=== PATIENT | female | born 1935 | race Caucasian/White ===

== ENCOUNTER 2017-03-27 16:12 | Inpatient (IN) ==
[2017-03-27] MEDS ORDERED: ONDANSETRON 4 MG/2 ML VIAL IV STA (16:45)
[2017-03-27] MEDS ORDERED: methylPREDNISolone SOD SUC 125 MG/2 ML VIAL IV STA (16:45)
[2017-03-27] MEDS ORDERED: LEVOFLOXACIN INJ 750 MG in PREMIX 1 EACH IV STA (16:45)
[2017-03-27] MEDS ORDERED: ALBUTEROL/IPRATROPIUM 3 ML NEB RESP TX STA (16:45)
[2017-03-27] MEDS ORDERED: NITROGLYCERIN 2% OINT 1 INCH/GM PACK TOP STA (16:45)
[2017-03-27 16:58] LABS: Basophils # 0.1 10*3/uL (0.0-0.2); Basophils % 0.4 % (0.0-0.8); Hematocrit 38.9 VOL% (35.7-47.0); Hemoglobin 12.8 GM/DL (12.0-16.0); Immature Granulocytes % 1.5 %; Lymphocytes # 0.8 10*3/uL (1.4-4.0); Lymphocytes % 6.2 % (21.3-54.2); Mean Corpuscular HGB Conc 32.9 GM/DL (32-36); Mean Corpuscular Hemoglobin 28 PG (27-34); Mean Corpuscular Volume 83.8 FL (87-102); Mean Platelet Volume 9.6 FL (9.6-12.0); Monocytes # 0.6 10*3/uL (0.11-0.8); Monocytes % 4.4 % (1.7-12.7); Neutrophils # 11.8 10*3/uL (1.4-7.4); Neutrophils % 87.5 % (38.7-73.9); Platelet Count 384 T/CUMM (130-400); Red Blood Count 4.64 MC/CUMM (3.8-5.5); Red Cell Distribution Width 14.9 % (9.3-17.3); White Blood Count 13.5 T/CUMM (4-12)
--- NOTE | 2017-03-27 16:58 | Emergency Department Note ---
Arrival - Arrival Chief Complaint: Shortness of Breath Stated Complaint: SOB, chest pains ED Nursing Triage Note: Pt c/o SOB, cough, and chest heaviness x 1 wk. Mode of Arrival: Wheelchair Limitations: No Limitations Source: Patient Time Seen by Provider: 03/27/17 16:45 - History of Present Illness HPI Narrative: This 81-year-old white female with long-standing COPD presents on referral from Dr. Herrera's office with one-week of cough, dyspnea on exertion breath, chest tightness centrally, nausea, and discolored secretions. She likewise has associated complaints of sinus congestion and drainage. She denies any chills or fever. Currently she appears in no medical distress. Onset (ago): week(s) (Patient presents with one-week of progressive symptoms) Allergies/Adverse Reactions: Allergies Allergy/AdvReac Type Severity Reaction Status Date / Time Fish Allergy Severe ANAPHYLAXIS Verified 10/12/16 17:09 Penicillins Allergy Unknown Unknown/Unable Verified 10/12/16 17:09 to obtain adhesive tape Allergy Redness of Verified 03/27/17 16:22 Skin aspirin Allergy WHEEZING Verified 10/17/16 13:05 latex Allergy Redness of Verified 03/27/17 16:22 Skin meperidine [From Demerol] AdvReac Intermediate Anxiety Verified 10/12/16 17:09 Home Medications: Home Medications Medication Instructions Recorded Confirmed Type Alendronate Sodium 35 mg PO Q7DAY 07/01/16 03/27/17 History Levothyroxine Tab [Synthroid Tab] 75 mcg PO DAILY 07/01/16 03/27/17 History Albuterol/Ipratropium Neb [Duoneb] 3 ml RESP TX RT Q4H PRN #0 07/07/16 03/27/17 Rx nebulization solution Pantoprazole Tab [Protonix Tab] 40 mg PO DAILY #30 tablet 07/07/16 03/27/17 Rx Magnesium Chloride [Slow Mag] 64 mg PO TID 10/12/16 03/27/17 History Dicyclomine Cap/Tab [Bentyl 10 mg PO TID #90 capsule 10/19/16 03/27/17 Rx Cap/Tab] Montelukast Tab [Singulair Tab] 10 mg PO BID #60 tablet 10/19/16 03/27/17 Rx Potassium Chloride Cap/Tab [K Dur] 20 meq PO BID #60 tablet 10/19/16 03/27/17 Rx Sucralfate Tab [Carafate Tab] 1 gm PO ACHS #120 tablet 10/19/16 03/27/17 Rx Albuterol Sulfate [Proair HFA] 2 puff INH Q6H PRN 12/01/16 03/27/17 History Theophylline ER Cap (24 Hr) 300 mg PO BID 12/01/16 03/27/17 History [Jass-24] hydroCHLOROthiazide 25 mg PO BID 12/01/16 03/27/17 History [Hydrochlorothiazide] metOLazone [Metolazone] 2.5 mg PO DAILY 12/01/16 03/27/17 History Cetirizine Tab [ZyrTEC Tab] 10 mg PO BEDTIME tablet 12/11/16 03/27/17 Rx Fluticasone 50 Mcg Nasal [place] 2 spray BOTH NARES DAILY PRN #1 12/11/16 Rx [Flonase Nasal [place]] nasal spray Review of System - Review of System 12 point system: reviewed and no additional remarkable complaints except as stated - Review of System Constitutional: Present: as per HPI Head/Ears/Nose/Throat: Present: see HPI Respiratory: Present: as per HPI Cardiovascular: Present: as per HPI Gastrointestinal: Present: as per HPI Medical,Surgical,& Family Hx - Medical History Cardio: History of: Hypertension No history of: Aneurysm, Cardiac Dysrhythmia, Cerebrovascular Disease, Congenital Heart Disease, CHF, CAD, [place], Pacemaker, PVD, Valvular Heart Disease, Cardiovascular Problems HEENT: History of: Eye Problem, Dental Problems (dentures) Endocrine: No history of: Dyslipidemia Respiratory: History of: Asthma, COPD Gastrointestinal: History of: GI Problems (abdominal pain and diarrhea) Musculoskeletal: History of: Back/Neck Problems - Surgical History Cardiac Surgeries: Patient Denies: Femoral-Popliteal Bypass Graft, Cardiac Catheterization, Cardiac Surgery, Carotid Endarterectomy, Internal Defibrillator, Vascular Access Devices Thoracic Surgeries: Patient denies;: Organ Transplant, Lobectomy HEENT Surgeries: Surgical HX of: Eye Surgery (cataracts) Patient denies: Carotid Endarterectomy Abdominal Surgeries: Patient denies: Abdominal Surgery, Splenectomy Reproductive Surgeries: Surgical HX of;: Hysterectomy Patient denies;: Genitourinary Surgery Orthopedic Surgeries: Surgical HX of;: Spinal Surgery (tumor removed) - Family History Family History: Reports;: Family Cancer, Family Heart Disease, Family Hypertension - Social History Smoking Status: Never smoker Exam Physical Examination: GENERAL: Well developed, well nourished elderly white female in no acute distress. HEENT: Normocephalic. No trauma. Moist mucous membranes. EOMI. PERRLA. ENT ears clear, throat clear, nose reveals nasal mucosa erythema and edema NECK: Supple. Cervical adenopathy. CARDIAC: Regular. No murmurs. Heart rate 130 CHEST: Scattered expiratory wheeze and rhonchus. No respiratory distress. O2 sat 94% ABDOMEN: Soft. Nontender. Active bowel sounds. EXTREMITIES: No trauma. Normal ROM. No pedal edema. SKIN: No diaphoresis. No rash. NEURO: Alert. Neuro intact. No focal deficits. Vital Signs: Vital Signs Temperature 97.0 F L 03/27/17 16:32 Pulse Rate 130 H 03/27/17 17:30 Respiratory Rate 34 H 03/27/17 17:30 Blood Pressure 160/83 03/27/17 17:30 O2 Sat by Pulse Oximetry 96 03/27/17 17:30 Course - Reevaluation(s) Reevaluation #1: Patient continues with resting tachycardia, rapid respirations, and desaturation without oxygen. She was advised hospitalization with consultation with pulmonary. - Consultations Consultation #1: Discussed with hospitalist service who will admit for further evaluation and treatment as well as pulmonary consultation. Results - Labs CBC & BMP: 03/27/17 16:49 03/27/17 16:49 Labs: I reviewed the laboratory noted the bump in white blood cell count - Impressions EKG: Sinus tachycardia at 130. Normal AL interval and QRS duration. Diffuse nonspecific ST changes. No acute injury pattern noted. - Diagnostic Findings Procedure: Chest x-ray: image reviewed by me, report reviewed by me (No acute disease) Disposition Clinical Impression: Chronic COPD, Asthma Case discussed with: patient Disposition: Still a Patient Condition: Stable Time of Disposition: 18:18
[2017-03-27 17:09] LABS: PT Patient Result 10.2 SECS; Partial Thromboplastin Time 28.5 SECS (0-40)
[2017-03-27] MEDS ORDERED: NITROGLYCERIN 2% OINT 1 INCH/GM PACK TOP ONE (17:11)
[2017-03-27] MEDS ORDERED: LEVOFLOXACIN INJ 150 ML IV ONE (17:11)
[2017-03-27] MEDS ORDERED: methylPREDNISolone SOD SUC 125 MG/2 ML VIAL ONE (17:11)
[2017-03-27] MEDS ORDERED: ONDANSETRON 4 MG/2 ML VIAL ONE (17:11)
--- NOTE | 2017-03-27 17:11 | XRay Report ---
Exam: XR chest 1V portable Indication: Shortness of breath Comparison study: 12/11/2016 Findings: The heart, mediastinum and bony structures are stable from prior. Punctate subcentimeter calcific densities in the perihilar regions appear unchanged from prior and likely represent calcified granulomas. Linear opacity left lung base likely represents plate atelectasis or scarring. There is no focal consolidation, pneumothorax or pleural effusion identified. Impression: No acute cardiopulmonary process. No significant change from prior. PROCEDURE INTERPRETED AT [facility] DEPARTMENT OF RADIOLOGY Final Report Signed by: Mahin Valle
[2017-03-27 17:20] LABS: Alanine Aminotransferase 36 U/L (13-56); Albumin 3.7 G/DL (3.4-5.0); Alkaline Phosphatase 53 U/L (45-117); Aspartate Amino Transferase 28 U/L (0-37); Bilirubin,Total < 0.39 MG/DL (0.2-1.0); Blood Urea Nitrogen 14 MG/DL (7-18); Calcium 9.4 MG/DL (8.5-10.1); Glucose 126 MG/DL (74-106); Osmolality,Calculated 268.4 MOS/KG (273-304); Potassium 3.5 MMOL/L (3.5-5.1); Sodium 133 MMOL/L (136-145); Troponin I Only < 0.015 NG/ML (0.00-0.045)
--- NOTE | 2017-03-27 17:25 | EKG Report ---
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
[2017-03-27] MEDS ORDERED: hydrALAZINE 20 MG/1 ML VIAL IV STA (18:10)
--- NOTE | 2017-03-27 18:30 | Hospitalist History & Physical ---
Assessment and Plan (1) COPD (chronic obstructive pulmonary disease) Status: Acute Assessment and plan: We will admit. We will start empiric antibiotics, inhaled bronchodilators, and intravenous corticosteroids. We will recheck chest x-ray in a.m. Current Visit: No (2) HTN (hypertension) Status: Acute Assessment and plan: Blood pressures have been relatively stable in the ED. We will resume home medications as previously ordered. We will monitor.. Current Visit: No (3) Leukocytosis Status: Acute Assessment and plan: White blood cell count noted at 13.5, we will start empiric antibiotics and recheck CBC in a.m.. Current Visit: No History of Present Illness Chief complaint: cough and shortness of breath x1 week History of present illness: This is a chronically ill 81 year old female that presented to the ED at [facility] for evaluation of shortness of breath and cough x1 week. The patient has a rather impressive medical history significant for hypertension, hypothyroidism, asthma, chronic pulmonary obstructive disease , chronic neck and back pain, and GERD. 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 The patient reports the onset of cough and shortness of breath a week prior to presentation. In addition she reports chest tightness, nausea, and sputum green and yellow in color. The patient is generally followed by Dr. Herrera, however he is out of town this week. She contacted his office and was advised to present to the ED for further evaluation. Labs were obtained at the time of his ED presentation, which showed a white blood cell count at 13.5, MCV 83.8, neutrophils at 87.5, and neutrophils at 11.8. Chemistries were obtained; which reported a sodium at 133, potassium at 3.5, chloride 96, carbon dioxide 28, BUN of 14, creatinine at 1.20, glucose at 126, calculated osmolality at 268.4. Cardiac enzymes were obtained which revealed a troponin of less than 0.015, CK-MB of 2.9, and total CK at 137. BNP was noted at 14. Chest radiograph was obtained which revealed a linear opacity at the left lung base which likely represent plate atelectasis or scarring. There is no focal consolidation pneumothorax or pleural effusion noted. After brief discussion with both Dr. Connolly and Dr. Lawson, the patient will be admitted to the hospitalist service for continuation of care. Home Medications Medication Instructions Recorded Confirmed Type Alendronate Sodium 35 mg PO Q7DAY 07/01/16 03/27/17 History Levothyroxine Tab [Synthroid Tab] 75 mcg PO DAILY 07/01/16 03/27/17 History Albuterol/Ipratropium Neb [Duoneb] 3 ml RESP TX RT Q4H PRN #0 07/07/16 03/27/17 Rx nebulization solution Pantoprazole Tab [Protonix Tab] 40 mg PO DAILY #30 tablet 07/07/16 03/27/17 Rx Magnesium Chloride [Slow Mag] 64 mg PO TID 10/12/16 03/27/17 History Dicyclomine Cap/Tab [Bentyl 10 mg PO TID #90 capsule 10/19/16 03/27/17 Rx Cap/Tab] Montelukast Tab [Singulair Tab] 10 mg PO BID #60 tablet 10/19/16 03/27/17 Rx Potassium Chloride Cap/Tab [K Dur] 20 meq PO BID #60 tablet 10/19/16 03/27/17 Rx Sucralfate Tab [Carafate Tab] 1 gm PO ACHS #120 tablet 10/19/16 03/27/17 Rx Albuterol Sulfate [Proair HFA] 2 puff INH Q6H PRN 12/01/16 03/27/17 History Theophylline ER Cap (24 Hr) 300 mg PO BID 12/01/16 03/27/17 History [Jass-24] hydroCHLOROthiazide 25 mg PO BID 12/01/16 03/27/17 History [Hydrochlorothiazide] metOLazone [Metolazone] 2.5 mg PO DAILY 12/01/16 03/27/17 History Cetirizine Tab [ZyrTEC Tab] 10 mg PO BEDTIME tablet 12/11/16 03/27/17 Rx Fluticasone 50 Mcg Nasal [place] 2 spray BOTH NARES DAILY PRN #1 12/11/16 Rx [Flonase Nasal [place]] nasal spray Allergies Allergy/AdvReac Type Severity Reaction Status Date / Time Fish Allergy Severe ANAPHYLAXIS Verified 10/12/16 17:09 Penicillins Allergy Unknown Unknown/Unable Verified 10/12/16 17:09 to obtain adhesive tape Allergy Redness of Verified 03/27/17 16:22 Skin aspirin Allergy WHEEZING Verified 10/17/16 13:05 latex Allergy Redness of Verified 03/27/17 16:22 Skin meperidine [From Demerol] AdvReac Intermediate Anxiety Verified 10/12/16 17:09 Medical,Surgical,& Family Hx - Medical History Cardio: History of: Hypertension No history of: Aneurysm, Cardiac Dysrhythmia, Cerebrovascular Disease, Congenital Heart Disease, CHF, CAD, [place], Pacemaker, PVD, Valvular Heart Disease, Cardiovascular Problems HEENT: History of: Dental Problems (dentures) Endocrine: No history of: Dyslipidemia Respiratory: History of: Asthma, COPD Gastrointestinal: History of: GI Problems (abdominal pain and diarrhea) Musculoskeletal: History of: Back/Neck Problems - Surgical History Cardiac Surgeries: Patient Denies: Femoral-Popliteal Bypass Graft, Cardiac Catheterization, Cardiac Surgery, Carotid Endarterectomy, Internal Defibrillator, Vascular Access Devices Thoracic Surgeries: Patient denies;: Organ Transplant, Lobectomy HEENT Surgeries: Surgical HX of: Eye Surgery (cataracts) Patient denies: Carotid Endarterectomy Abdominal Surgeries: Patient denies: Abdominal Surgery, Splenectomy Reproductive Surgeries: Surgical HX of;: Hysterectomy Patient denies;: Genitourinary Surgery Orthopedic Surgeries: Surgical HX of;: Spinal Surgery (tumor removed) - Family History Family History: Reports;: Family Cancer, Family Heart Disease, Family Hypertension - Social History Smoking Status: Never smoker 12 point system: reviewed and no additional remarkable complaints except as stated Exam - Constitutional Vitals: Period Temp Pulse Resp BP Sys/Rahman Pulse Ox Last 24 Hr 97.0 F-97.0 F 116-134 17-34 107-160/59-99 94-99 General appearance: normal weight, mild distress - Head Head exam: Present: normal inspection, normocephalic, atraumatic - Eye Eye exam: Present: EOMI. Absent: conjunctival injection, nystagmus Pupils: Present: DEBORAH, normal accommodation - ENT ENT exam: Present: normal exam, normal external ear exam, normal oropharynx - Neck Neck exam: Present: normal inspection. Absent: lymphadenopathy, meningismus, tenderness, thyromegaly - Respiratory Respiratory exam: Present: rales, rhonchi, wheezes - Cardiovascular Cardiovascular exam: Present: tachycardia. Absent: carotid bruit, diastolic murmur, gallop, JVD, rubs - GI/Abdominal GI/Abdominal exam: Present: normal bowel sounds, soft - Extremities Exam Extremities exam: Present: normal inspection, normal capillary refill, full ROM. Absent: edema - Back Exam Back exam: Present: normal inspection - Neurological Exam Neurological exam: Present: alert, oriented X3 - Psychiatric Psychiatric exam: Present: anxious - Skin Skin exam: Present: normal color, warm, dry Results - Labs CBC & BMP: 03/27/17 16:49 03/27/17 16:49 Lab Results: I have reviewed the past 24 hour labs
[2017-03-27] MEDS ORDERED: FLUTICASONE 50 MCG NASAL SPRAY 16 GM BOTTLE BOTH NARES PRN (19:43)
[2017-03-27] MEDS ORDERED: LORazepam 1 MG TABLET PO PRN (19:46)
[2017-03-27] MEDS ORDERED: ONDANSETRON 4 MG/2 ML VIAL IV PRN (20:41)
[2017-03-27] MEDS ORDERED: GLUCAGON 1 MG VIAL IM PRN (20:41)
[2017-03-27] MEDS ORDERED: ACETAMINOPHEN 325 MG TABLET PO PRN (20:41)
[2017-03-27] MEDS ORDERED: ALBUTEROL 2.5 MG/3 ML NEB RESP TX PRN (20:41)
[2017-03-27] MEDS ORDERED: DEXTROSE 50% 25 GM/50 ML VIAL IV PRN (20:41)
[2017-03-27] MEDS ORDERED: ENOXAPARIN 30 MG/0.3 ML SYRINGE SUBCUT SCH (21:00)
[2017-03-27] MEDS ORDERED: CEFEPIME 1,000 MG in SODIUM CHLORIDE 0.9% 100 ML IV SCH (21:00)
[2017-03-27] MEDS: SODIUM CHLORIDE 0.9% 1,000 ML IV SCH (21:47)
[2017-03-27] MEDS: MAGNESIUM CHLORIDE 64 MG TABLET PO SCH (21:48)
[2017-03-27] MEDS: POTASSIUM CHLORIDE 10 MEQ TABLET PO SCH (21:48)
[2017-03-27] MEDS: DICYCLOMINE 10 MG CAPSULE PO SCH (21:48)
[2017-03-27] MEDS: THEOPHYLLINE ER (24 HR) 300 MG CAPSULE PO SCH (21:48)
[2017-03-27] MEDS: CETIRIZINE 10 MG TABLET PO SCH (21:49)
[2017-03-27] MEDS: SUCRALFATE 1 GM TABLET PO SCH (21:49)
[2017-03-27] MEDS: INSULIN LISPRO 100 UNIT/ML SUBCUT SCH (22:46)
[2017-03-27] MEDS: ALBUTEROL/IPRATROPIUM 3 ML NEB RESP TX SCH (22:52)
[2017-03-28] MEDS: methylPREDNISolone SOD SUC 40 MG/1 ML VIAL IV SCH ×3 (00:26→17:00)
[2017-03-28] MEDS: ALBUTEROL/IPRATROPIUM 3 ML NEB RESP TX SCH ×5 (02:41→20:11)
[2017-03-28 03:01] LABS: ABG Base Excess 3.4 MMOL/L (-2.5-2.5); ABG HCO3 27.6 MMOL/L (20-26); ABG Oxygen Saturation 96.6 % (95-100); ABG PCO2 40.6 MM HG (35-48); ABG PO2 85.5 MM HG (80-95); ABG TCO2 28.8 MMOL/L (23-27); Allen Test Positive
[2017-03-28 04:51] LABS: Basophils % 0.3 % (0.0-0.8); Hematocrit 35.6 VOL% (35.7-47.0); Hemoglobin 11.5 GM/DL (12.0-16.0); Immature Granulocytes % 1.9 %; Immature Granulocytes Absolute 0.19 #; Lymphocytes # 0.6 10*3/uL (1.4-4.0); Lymphocytes % 5.5 % (21.3-54.2); Mean Corpuscular HGB Conc 32.3 GM/DL (32-36); Mean Corpuscular Hemoglobin 27 PG (27-34); Mean Corpuscular Volume 83.8 FL (87-102); Mean Platelet Volume 9.6 FL (9.6-12.0); Monocytes # 0.1 10*3/uL (0.11-0.8); Monocytes % 0.7 % (1.7-12.7); Neutrophils # 9.2 10*3/uL (1.4-7.4); Neutrophils % 91.6 % (38.7-73.9); Platelet Count 355 T/CUMM (130-400); Red Blood Count 4.25 MC/CUMM (3.8-5.5); Red Cell Distribution Width 14.9 % (9.3-17.3); White Blood Count 10.1 T/CUMM (4-12)
[2017-03-28 05:30] LABS: Band Neutrophils 2 % (0-10); Lymphocytes 4 % (20-55); Segmented Neutrophils 92 % (50-85); Total Cells Counted 100
[2017-03-28 05:31] LABS: Hypochromasia 1+; Microcytosis 1+
[2017-03-28 05:32] LABS: Platelet Estimate Normal
[2017-03-28 05:37] LABS: Blood Urea Nitrogen 14 MG/DL (7-18); Calcium 8.9 MG/DL (8.5-10.1); Glucose 149 MG/DL (74-106); Magnesium 2.3 MG/DL (1.8-2.4); Potassium 3.5 MMOL/L (3.5-5.1); Sodium 136 MMOL/L (136-145); Troponin I Only < 0.015 NG/ML (0.00-0.045)
--- NOTE | 2017-03-28 07:26 | EKG Report ---
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
[2017-03-28] MEDS: LEVOTHYROXINE 75 MCG TABLET PO SCH (07:41)
[2017-03-28] MEDS: SUCRALFATE 1 GM TABLET PO SCH ×4 (07:42→20:52)
[2017-03-28] MEDS: INSULIN LISPRO 100 UNIT/ML SUBCUT SCH ×4 (09:08→21:08)
--- NOTE | 2017-03-28 09:12 | Physician Query Form ---
CLICK EDIT DOCUMENT TO SELECT QUERY ANSWER --> OK --> SIGN Rena Hermosillo RN, CCDS Certified Clinical Roofing Supervisor W) [phone] (f) [phone] [email or web address] PROVIDERS: Make your selection(s) from the choices in EACH section by typing an "x" and enter comments in the comment section. Please use your independent medical judgment in providing your response. This request does not imply that any particular answer is desired or expected. CLINICAL INDICATORS: (Providers should not edit this section) The medical record indicates that the patient was admitted with COPD (Acute), Pulse of 130#, Respirations of 34#, WBC of 13.5# and the patient was treated with antibiotics. Based on the above, could you clarify the appropriate diagnosis, if significant , that supports the above abnormalities and additional evaluation, monitoring, and/or treatment rendered: ( x) COPD without SIR's ( ) COPD with SIR's ( ) Other, please specify: ( ) Clinically unable to determine COMMENTS: PLEASE ALSO DOCUMENT RESPONSE IN PROGRESS NOTES AND/OR DISCHARGE SUMMARY Use of terms such as suspected, likely, or probable (associated with a specific diagnosis that is being evaluated, monitored, or treated as if it exists) are acceptable and can be restated in the discharge summary if not ruled out. MTDD
--- NOTE | 2017-03-28 09:17 | Hospitalist Progress Note ---
Assessment and Plan (1) COPD with acute exacerbation Status: Acute Assessment and plan: Impression: 1. COPD with acute exacerbation Plan: Continue current medical management. The patient is anxious to see Dr. Samaniego, so we will request evaluation if he is in town. This note was completed using [employer] voice recognition software. There may be electrophonic engineer errors as a result. Current Visit: No Hospitalist: Subjective Interval history: Follow-up COPD. The patient continues with dyspnea. She exhibits difficulty completing a sentence. She had an echocardiogram earlier this year that was fairly normal. She continues with a nonproductive cough. Exam - Constitutional Vitals: Period Temp Pulse Resp BP Sys/Rahman Pulse Ox Last 24 Hr 96.5 F-98.4 F 87-134 17-34 107-160/59-99 90-99 Vital signs are noted above. Heart is regular with distant tones and no murmur. Examination of the lungs reveals a prolonged expiratory phase. I do not hear any wheezing this morning. Abdomen is soft with positive bowel sounds. She is awake and alert Results - Labs CBC & BMP: 03/28/17 04:26 03/28/17 04:26 Lab Results: I have reviewed the past 24 hour labs - Diagnostic Findings Procedure: Chest x-ray: image reviewed by me
[2017-03-28] MEDS: DICYCLOMINE 10 MG CAPSULE PO SCH ×3 (10:12→20:52)
[2017-03-28] MEDS: THEOPHYLLINE ER (24 HR) 300 MG CAPSULE PO SCH ×2 (10:12→20:52)
[2017-03-28] MEDS: MAGNESIUM CHLORIDE 64 MG TABLET PO SCH ×3 (10:13→20:52)
[2017-03-28] MEDS: PANTOPRAZOLE 40 MG TABLET PO SCH (10:13)
[2017-03-28] MEDS: POTASSIUM CHLORIDE 10 MEQ TABLET PO SCH ×2 (10:14→20:52)
[2017-03-28] MEDS: SODIUM CHLORIDE 0.9% 1,000 ML IV SCH (10:15)
[2017-03-28] MEDS: CEFEPIME 1,000 MG in SODIUM CHLORIDE 0.9% 100 ML IV SCH ×2 (10:16→20:52)
--- NOTE | 2017-03-28 10:50 | Pulmonology Consult Note ---
History of Present Illness Chief complaint: Acute exacerbation of COPD. Bilateral basilar infiltrates. History of present illness: Benjamin Mauro, ANP-BC, GNP-BC, acting as scribe for Dr. Taqueria Samaniego Mrs. Gonzales is an 81 year old white female from [place], [place], presented to [facility] on 03/27/2017. She complained of increased shortness of breath , wheeze, chest tightness centrally, nausea and productive cough with discolored sputum. On evaluation, she is felt to be an acute exacerbation of COPD. Of note, approximately 1-2 weeks of note the patient called [facility] with complaints of a "sinus infection". She requests antibiotics, but had to wait come in for evaluation. She was started on Bactrim DS one half tablet p.o. twice daily for 2 weeks. Given her advanced age , acute illness, multiple co-morbidities, and the fact that she did not improve with outpatient treatment, it was felt in her best interest to hospitalize her for further evaluation and care. She reports increased shortness of breath, AGUSTIN and productive cough with discolored sputum for greater than 1 week. She denies any known fever, but states she has episodes of "hot and cold all the time". She confirms reflux, but denies dysphagia. There has been no cardiac angina or palpitations. Of note , I had a recent clinic visit the patient complained of "chest pain". She was given a prescription for Imdur 30 mg daily. EKG showed no acute changes. She was also referred to cardiology for evaluation. It is noted that her medication list this admission does not list Imdur. There has been no bleeding from any site. No change in bowel or bladder habits. No TIA symptoms or syncope. All other systems were reviewed and were negative. Allergies: PCN and Demerol Medications: See list Immunizations: Pneumovax was given in 2003. Tetanus shot was given in 2001. She gets yearly flu vaccinations. Past medical history: [place] hospitalization 12/01/2016 through 12/11/2016 under the care of the hospitalists and Dr. Samaniego. She was treated for an acute exacerbation of COPD secondary to gram-positive cocci and/or gram-negative rods as well as an acute exacerbation of asthma. [facility] hospitalization through 10/19/[address] Samaniego. During that admission she was treated for an acute abdominal pain with diarrhea refractory to outpatient treatment felt secondary to abdominal wall spasm, acute dehydration secondary to decreased oral intake, and associated generalized weakness. [facility] hospitalization 06/30/2016 through 07/10/[address] Samaniego. During that admission, she was treated for an acute exacerbation of her asthma which been refractory to outpatient treatment and also acute erosive left lower lung probable bronchitis which was seen on bronchoscopy 03/05/2016. [place] hospitalization September 2010-October 2010 with acute severe bronchitis and bronchospasm. At that time the patient went home on tapering dose of Prednisone , Singulair 10mg PO daily, and Theophylline 300mg PO BID. She was also on antibiotics. She was treated for a tick bite on her leg and her arm late January 2011. COPD with bronchospastic disease. Hypothyroidism. Diverticulosis. History of tobacco abuse. Distant past history of alcohol abuse. Pas history of episodes of symptomatic hypoglycemia occurring in the morning after excessive sugar intake. This resolved with revision of her diet. History of nonspecific colitis. Diverticular disease of the colon, redundant colon. Large lipoma over the left trapezius muscle. Degenerative joint disease with knee symptoms. Also pain in the interphalangeal joints of the hands. History of recurrent fever blisters in the mouth. Hypertension. Hyperlipidemia. Family history: Positive for heart disease, emphysema, bronchospastic disease, diabetes, and glaucotma. Social history: The patient says she stopped smoking. She has a history of alcoholism, but quit drinking more than 10-11 years ago. She occasionally has a glass of red wine. She is . Her , Kane Gonzales, was a patient of Dr. Samaniego and he 06/17/06. CXR. Done 03/27/17. My interpretation: Heart is normal sized. The pulmonary arteries are normal. The mediastinum is not enlarged. There is no hilar adenopathy. The lungs are hyperinflated. There are acute bibasilar infiltrates compatible with pneumonia. Laboratory: White count admission was 13,500 but is fallen to 10,100 with 91.6% segs, 5.5% lymphs, 0.7% monos; H&H 11.5/35.6 with low to low normal indices normal red blood cell distribution with; platelet count 355,000; INR 1.0; creatinine initially 1.20 but has improved to 0.9, BUN 14, sodium 136, potassium 3.5, magnesium 2.3; liver function tests within normal limits; cardiac isoenzymes are negative; BNP 14; calcium 8.9, albumin 3.7, total protein 7.0 ABGs. Done 03/28/2017 on an FiO2 of 28% showed pH of 7.450, PCO2 40.6, PO2 85.5 , bicarb 27.6, and oxygen saturation 96.6% Home Medications Medication Instructions Recorded Confirmed Type Alendronate Sodium 35 mg PO Q7DAY 07/01/16 03/27/17 History Levothyroxine Tab [Synthroid Tab] 75 mcg PO DAILY 07/01/16 03/27/17 History Albuterol/Ipratropium Neb [Duoneb] 3 ml RESP TX RT Q4H PRN #0 07/07/16 03/27/17 Rx nebulization solution Pantoprazole Tab [Protonix Tab] 40 mg PO DAILY #30 tablet 07/07/16 03/27/17 Rx Magnesium Chloride [Slow Mag] 64 mg PO TID 10/12/16 03/27/17 History Dicyclomine Cap/Tab [Bentyl 10 mg PO TID #90 capsule 10/19/16 03/27/17 Rx Cap/Tab] Montelukast Tab [Singulair Tab] 10 mg PO BID #60 tablet 10/19/16 03/27/17 Rx Potassium Chloride Cap/Tab [K Dur] 20 meq PO BID #60 tablet 10/19/16 03/27/17 Rx Sucralfate Tab [Carafate Tab] 1 gm PO ACHS #120 tablet 10/19/16 03/27/17 Rx Albuterol Sulfate [Proair HFA] 2 puff INH Q6H PRN 12/01/16 03/27/17 History Theophylline ER Cap (24 Hr) 300 mg PO BID 12/01/16 03/27/17 History [Jass-24] hydroCHLOROthiazide 25 mg PO BID 12/01/16 03/27/17 History [Hydrochlorothiazide] metOLazone [Metolazone] 2.5 mg PO DAILY 12/01/16 03/27/17 History Cetirizine Tab [ZyrTEC Tab] 10 mg PO BEDTIME tablet 12/11/16 03/27/17 Rx Fluticasone 50 Mcg Nasal [place] 2 spray BOTH NARES DAILY PRN #1 12/11/16 Rx [Flonase Nasal [place]] nasal spray Allergies Allergy/AdvReac Type Severity Reaction Status Date / Time Fish Allergy Severe ANAPHYLAXIS Verified 10/12/16 17:09 Penicillins Allergy Unknown Unknown/Unable Verified 10/12/16 17:09 to obtain adhesive tape Allergy Redness of Verified 03/27/17 16:22 Skin aspirin Allergy WHEEZING Verified 10/17/16 13:05 latex Allergy Redness of Verified 03/27/17 16:22 Skin meperidine [From Demerol] AdvReac Intermediate Anxiety Verified 10/12/16 17:09 Exam ([facility]) H&P - Constitutional Vitals: Period Temp Pulse Resp BP Sys/Rahman Pulse Ox Last 24 Hr 96.5 F-98.4 F 87-134 17-34 107-160/59-99 90-99 Exam: Psych: Oriented x 3; a pleasant and cooperative patient who is acutely and chronically ill-appearing; slightly anxious HEENT: Pupils, irises, sclera, conjunctiva, and eyelids are normal. The face is symmetrical and slightly cushingoid without rash or masses. Lips, tongue, buccal mucosa, soft and hard palates, and pharynx are WNL Neck: Symmetrical. Thyroid was not palpated. Lymphatics: No submandibular, cervical, or supraclavicular adenopathy Chest: Symmetrical and slightly kyphotic; no significant wheeze; large airway congestion Breasts: Deferred CV: Regular and tachycardic with a slightly lateral PMI. There is no appreciable murmur, rub, or gallop. Arterial: Carotids with a good upstroke. There is no bruit. Upper extremity pulses are palpable. Lower extremity pulses are non-palpable, but I see no evidence of ischemia Venous: Exam of the neck and upper extremities is normal Abd: No appreciable organomegaly, masses, tenderness, or bruit; Bowel sounds are positive x 4; The aorta was not palpated /Rectal: Deferred Extremities: No clubbing, cyanosis, or obvious DVT; there is mild pedal edema bilaterally Skin: No cancerous or infectious lesions of the exposed, examined skin; the perineal area was not examined. M/S: Mild loss of the normal curvature of the cervical, thoracic, and lumbar spine Neurological: Cranial nerves are intact, Long tract motor function is intact; Sensory exam was not done; gait was not tested. The remainder of the exam was noncontributory. Impression: #1: Acute exacerbation of COPD ---refractory to OP Tx #2: Asthma. COPD. #3: Acute bibasilar infiltrates compatible with bilateral lower lung pneumonia #4: Hypothyroidism #5: History of L1-L2 microdiscectomy done 08/11/[address] Chand #6: History of allergic sinusitis #7: Hypertension #8: Hyperlipidemia #9: Long history of tobacco abuse. Stopped smoking in early 2010. #10: Diverticular disease of the colon, redundant colon, and history of colitis #11: Lipoma over the left trapezius muscle #12: Postherpetic neuralgia #13: Past history of acute situational depression probably imposed on endogenous factors #14: DJD with prominent knee symptoms especially of the left knee #15: See past history Plan: #1: Agree with present antibiotics but will add Cleocin 300 mg IV every 6 hours #2: Repeat chest x-ray in the morning #3: Check cold agglutinins and Legionella #4: Sputum for gram stain, culture, and sensitivity #5: Check theophylline level #6: Check TSH and free T4 #7: See orders We appreciate this consult and will follow along with you. Medical,Surgical,& Family Hx - Medical History Cardio: History of: Cardiac Dysrhythmia (FAST HEART BEAT DIAGNOSED SEVERAL YEARS AGO ?), Hypertension No history of: Aneurysm, Cerebrovascular Disease, Congenital Heart Disease, CHF, CAD, MD, Pacemaker, PVD, Valvular Heart Disease, Cardiovascular Problems Psychological: History of: Depression HEENT: History of: Eye Problem (CATARACT), Dental Problems (dentures) Endocrine: History of: Thyroid Disorder No history of: Dyslipidemia Respiratory: History of: Asthma, Bronchitis, COPD, Respiratory Problems (USES 02 AT HOME) No history of: Intubation, Obstructive Sleep Apnea, Pulmonary Embolism, Pulmonary Hypertension, Pneumonia, Lung Cancer Genitourinary: History of: Recurring Urinary Tract Infections Gastrointestinal: History of: GERD, GI Problems (abdominal pain and diarrhea) Musculoskeletal: History of: Back/Neck Problems Hematology: History of: Bleeding Problems (ABNORMAL VAG BLEEDING (HYST), EASY BRUISING) Reproductive: History of: Reproductive Problems (ABNORMAL BLEEDING (HYST)) Other: History of: Skin Problems (SKIN TEARS EASILY(THIN SKIN), HX SHINGLES), Miscellaneous Medical Problems (BRUISES EASILY) - Surgical History Cardiac Surgeries: Patient Denies: Femoral-Popliteal Bypass Graft, Cardiac Catheterization, Cardiac Surgery, Carotid Endarterectomy, Internal Defibrillator, Vascular Access Devices Thoracic Surgeries: Patient denies;: Organ Transplant, Lobectomy Neurologic Surgeries: Patient denies: Neurologic Surgery HEENT Surgeries: Surgical HX of: Eye Surgery (cataracts), Tonsilectomy & Adenoidectomy Patient denies: Carotid Endarterectomy, Thyroid Surgery Abdominal Surgeries: Surgical HX of: Appendectomy, Colonoscopy (LAST DONE AT 74 Y/O), EGD Patient denies: Abdominal Surgery, Cholecystectomy, Gastric Bypass Surgery, Hernia Repair, Splenectomy Reproductive Surgeries: Surgical HX of;: Gynecologic Surgery, Hysterectomy Patient denies;: Genitourinary Surgery Orthopedic Surgeries: Surgical HX of;: Orthopedic Surgery (BACK SURG), Spinal Surgery (tumor removed) - Family History Family History: Reports;: Family Cancer (MOM(CERVIX),AUNT X2), Family Diabetes ( SON), Family Heart Disease (DAD(MD),SON), Family Hematology (SON(BLOOD CLOTS)), Family Hypertension (FATHER?), Family Psychiatric Problems (NEPHEW) Denies;: Family Anesthesia Reaction, Family Stroke, Additional Family History - Social History Smoking Status: Former smoker Frequency of Alcohol Use: None Type of Drug Use: None Results - Labs CBC & BMP: 03/28/17 04:26 03/28/17 04:26
[2017-03-28 12:25] LABS: Free T4 (Free Thyroxine) 1.27 NG/DL (0.76-1.46); Thyroid Stimulating Hormone 0.271 uIU/ml (0.358-3.74)
[2017-03-28] MEDS: CLINDAMYCIN INJ 300 MG in PREMIX 1 EACH IV SCH ×2 (13:19→17:30)
[2017-03-28] MEDS: LEVOFLOXACIN INJ 750 MG in PREMIX 1 EACH IV SCH (15:01)
[2017-03-28] MEDS: CETIRIZINE 10 MG TABLET PO SCH (20:52)
[2017-03-28] MEDS ORDERED: ENOXAPARIN 40 MG/0.4 ML SYRINGE SUBCUT SCH (21:00)
[2017-03-29] MEDS: ALBUTEROL/IPRATROPIUM 3 ML NEB RESP TX SCH ×7 (00:12→22:50)
[2017-03-29] MEDS: methylPREDNISolone SOD SUC 40 MG/1 ML VIAL IV SCH ×3 (02:11→17:53)
[2017-03-29] MEDS: CLINDAMYCIN INJ 300 MG in PREMIX 1 EACH IV SCH ×4 (02:11→18:00)
[2017-03-29] MEDS: SODIUM CHLORIDE 0.9% 1,000 ML IV SCH ×3 (04:41→17:59)
--- NOTE | 2017-03-29 08:26 | XRay Report ---
XR chest 2V Indication: Bibasilar infiltrates. Comparison: Chest x-ray 03/27/2017 Technique: PA and lateral chest x-ray was performed. Findings: The heart size appears within normal limits. Atherosclerotic calcification of the aortic knob is stable. Pulmonary vasculature demonstrates no specific abnormality. Hilar structures demonstrate fairly symmetric appearance. The lungs are now clear with exception of a focal nodular density right lung base that may be partially calcified. Minimal blunting the costophrenic angles is present. Hyperinflation is noted on the lateral image. Bones and soft tissues demonstrate no evidence of acute pathology. Impression: 1. Emphysematous changes are present. The lungs are clear on today's study with exception of a small nodular density in the lower right chest, density which suggests calcification. 03/29/2017 8:22 AM PROCEDURE INTERPRETED AT [facility] DEPARTMENT OF RADIOLOGY Final Report Signed by: Dr. Yony Hermosillo
--- NOTE | 2017-03-29 08:45 | Hospitalist Progress Note ---
Assessment and Plan (1) COPD with acute exacerbation Status: Acute Assessment and plan: Impression: 1. COPD with acute exacerbation Plan: Continue current medical management. Await pulmonary opinion. She may be about ready for discharge. This note was completed using [employer] voice recognition software. There may be track repairer helper errors as a result. Current Visit: No Hospitalist: Subjective Interval history: Follow-up COPD. The patient has just gone to have a chest x-ray. She says that she slept well last night. She is producing some sputum. She thinks her dyspnea may be at baseline. Exam - Constitutional Vitals: Period Temp Pulse Resp BP Sys/Ramhan Pulse Ox Last 24 Hr 96.6 F-98.1 F 87-130 15-22 124-139/55-77 95-99 Vital signs are noted above. Heart is regular with distant tones and no murmur. She is moving air fairly well. I do not hear any wheezes today. Abdomen is soft with no mass or tenderness. She is awake and alert. Results - Labs CBC & BMP: 03/28/17 04:26 03/28/17 04:26 Lab Results: I have reviewed the past 24 hour labs - Diagnostic Findings Procedure: Chest x-ray: image reviewed by me (Final report is pending. Film looks a little better to me.)
[2017-03-29] MEDS: CEFEPIME 1,000 MG in SODIUM CHLORIDE 0.9% 100 ML IV SCH ×2 (09:00→22:00)
[2017-03-29] MEDS: DICYCLOMINE 10 MG CAPSULE PO SCH ×3 (09:40→21:59)
[2017-03-29] MEDS: THEOPHYLLINE ER (24 HR) 300 MG CAPSULE PO SCH ×2 (09:40→21:59)
[2017-03-29] MEDS: MAGNESIUM CHLORIDE 64 MG TABLET PO SCH ×3 (09:40→21:59)
[2017-03-29] MEDS: SUCRALFATE 1 GM TABLET PO SCH ×5 (09:40→22:00)
[2017-03-29] MEDS: POTASSIUM CHLORIDE 10 MEQ TABLET PO SCH ×2 (09:41→21:59)
[2017-03-29] MEDS: PANTOPRAZOLE 40 MG TABLET PO SCH (09:41)
[2017-03-29] MEDS: LEVOTHYROXINE 75 MCG TABLET PO SCH (09:42)
[2017-03-29] MEDS: INSULIN LISPRO 100 UNIT/ML SUBCUT SCH ×4 (09:42→22:01)
--- NOTE | 2017-03-29 09:53 | Pulmonology Progress Note ---
Pulmonary - PN: Subj Interval history: This is an 81-year-old white female from [facility]. I saw in pulmonary consultation on 03/28/2017 My impressions were. #1: Acute exacerbation of COPD ---refractory to OP Tx #2: Asthma. COPD. #3: Acute bibasilar infiltrates compatible with bilateral lower lung pneumonia #4: Hypothyroidism #5: History of L1-L2 microdiscectomy done 08/11/[address] Chand #6: History of allergic sinusitis #7: Hypertension #8: Hyperlipidemia #9: Long history of tobacco abuse. Stopped smoking in early 2010. #10: Diverticular disease of the colon, redundant colon, and history of colitis #11: Lipoma over the left trapezius muscle #12: Postherpetic neuralgia #13: Past history of acute situational depression probably imposed on endogenous factors #14: DJD with prominent knee symptoms especially of the left knee #15: See past history 03/29/2017. Patient is a good bit better today she is beginning to mobilize a significant amount of discolored sputum. Her chest x-ray shows small residual of her resolving right lower lung pneumonia. She has been able to get up in the chair. I have asked her to walk a little bit make sure that she will be able to get up and move when she gets home. She is having trouble mobilizing her sputum and I have added SSKI and Mucinex to her regimen. On chest exam she still has tracheal wheeze with prolonged incomplete expiration. She still has a moderate cough. This patient could possibly be ready to go home tomorrow but on the other hand she may need to stay longer. Let us reevaluate Sunday morning. Physical exam. Vital signs. See below Psychiatric oriented 3. Neurologic. Cranial nerves are intact. Long track motor functions intact. Gait is a little unsteady. Face. Symmetrical. Lips and tongue are normal. Neck. Symmetrical. Slightly kyphotic. No meningismus. Lymphatics. No submandibular cervical supraclavicular or epitrochlear adenopathy Chest tracheal wheeze with prolonged incomplete expiration. I do not hear any peripheral wheezes but patient may not be moving enough air to produce these. Heart. No gallop Abdomen. Nontender. Positive bowel sounds Extremities. No evidence of deep venous thrombophlebitis. Skin. Patient has easy bruising and she is bleeding some from her IV site. I am going to discontinue her Lovenox. She is up and moving and deep venous thrombophlebitis is not a significant risk at this time. Plan: 03/28/2017 #1: Agree with present antibiotics but will add Cleocin 300 mg IV every 6 hours #2: Repeat chest x-ray in the morning #3: Check cold agglutinins and Legionella #4: Sputum for gram stain, culture, and sensitivity #5: Check theophylline level #6: Check TSH and free T4 #7: See orders 03/29/2017. 1. Add Mucinex 2. Add SSKI. 3. Could be close to discharge. Let us reevaluate Sunday morning Exam (Progress Note) - Constitutional Vitals: Period Temp Pulse Resp BP Sys/Rahman Pulse Ox Last 24 Hr 96.6 F-98.1 F 87-130 15-22 124-139/55-77 95-99 Results - Labs CBC & BMP: 03/28/17 04:26 03/28/17 04:26
[2017-03-29] MEDS: LEVOFLOXACIN INJ 750 MG in PREMIX 1 EACH IV SCH (15:26)
[2017-03-29] MEDS: POTASSIUM IODIDE ORAL SOLN 1,000 MG/ML BOTTLE PO SCH ×2 (15:30→22:00)
[2017-03-29] MEDS: CETIRIZINE 10 MG TABLET PO SCH (21:59)
[2017-03-30] MEDS: methylPREDNISolone SOD SUC 40 MG/1 ML VIAL IV SCH ×2 (01:21→09:26)
[2017-03-30] MEDS: CLINDAMYCIN INJ 300 MG in PREMIX 1 EACH IV SCH ×3 (01:21→12:32)
[2017-03-30] MEDS: ALBUTEROL/IPRATROPIUM 3 ML NEB RESP TX SCH ×4 (03:26→14:08)
[2017-03-30] MEDS: SODIUM CHLORIDE 0.9% 1,000 ML IV SCH (05:14)
[2017-03-30] MEDS: LEVOTHYROXINE 75 MCG TABLET PO SCH (06:20)
[2017-03-30] MEDS: SUCRALFATE 1 GM TABLET PO SCH ×3 (06:21→11:30)
[2017-03-30] MEDS: INSULIN LISPRO 100 UNIT/ML SUBCUT SCH ×2 (09:22→12:32)
[2017-03-30] MEDS: POTASSIUM CHLORIDE 10 MEQ TABLET PO SCH (09:23)
[2017-03-30] MEDS: DICYCLOMINE 10 MG CAPSULE PO SCH (09:23)
[2017-03-30] MEDS: CEFEPIME 1,000 MG in SODIUM CHLORIDE 0.9% 100 ML IV SCH (09:24)
[2017-03-30] MEDS: POTASSIUM IODIDE ORAL SOLN 1,000 MG/ML BOTTLE PO SCH (09:25)
[2017-03-30] MEDS: THEOPHYLLINE ER (24 HR) 300 MG CAPSULE PO SCH (09:25)
[2017-03-30] MEDS: MAGNESIUM CHLORIDE 64 MG TABLET PO SCH (09:25)
[2017-03-30] MEDS: PANTOPRAZOLE 40 MG TABLET PO SCH (09:25)
--- NOTE | 2017-03-30 09:45 | Pulmonology Progress Note ---
Pulmonary - PN: Subj Interval history: This is an 81-year-old white female from [facility]. I saw in pulmonary consultation on 03/28/2017 My impressions were. #1: Acute exacerbation of COPD ---refractory to OP Tx #2: Asthma. COPD. #3: Acute bibasilar infiltrates compatible with bilateral lower lung pneumonia #4: Hypothyroidism #5: History of L1-L2 microdiscectomy done 08/11/[address] Chand #6: History of allergic sinusitis #7: Hypertension #8: Hyperlipidemia #9: Long history of tobacco abuse. Stopped smoking in early 2010. #10: Diverticular disease of the colon, redundant colon, and history of colitis #11: Lipoma over the left trapezius muscle #12: Postherpetic neuralgia #13: Past history of acute situational depression probably imposed on endogenous factors #14: DJD with prominent knee symptoms especially of the left knee #15: See past history 03/29/2017. Patient is a good bit better today she is beginning to mobilize a significant amount of discolored sputum. Her chest x-ray shows small residual of her resolving right lower lung pneumonia. She has been able to get up in the chair. I have asked her to walk a little bit make sure that she will be able to get up and move when she gets home. She is having trouble mobilizing her sputum and I have added SSKI and Mucinex to her regimen. On chest exam she still has tracheal wheeze with prolonged incomplete expiration. She still has a moderate cough. This patient could possibly be ready to go home tomorrow but on the other hand she may need to stay longer. Let us reevaluate Sunday morning. 03/30/2017. SSKI was added to the patient's regimen yesterday. She was able to expectorate a great deal of sputum and she is markedly better. She feels like she is good enough to go home and I think she is correct on this. I have discussed this with Dr. Lakhani and he is agreeable. We have coordinated our care. I suggested she go home on her home medicines. We will continue prednisone 10 mg twice a day. First dose should be given in the morning and the second dose around noon time. I would give her 250 mg of Levaquin for another 7 days and Cleocin 300 mg p.o. 3 times a day for another 7 days. I suggest we add SSKI 0.9 mL 3 times a day to her regimen. I will make her a follow-up appointment to see DIEGO Priest pulmonary nurse practitioner in about 2 weeks. Physical exam. Vital signs. See below Psychiatric oriented 3. General. Markedly better. Respiratory distress seems to have resolved Neurologic. Cranial nerves are intact. Long track motor functions intact. Gait is a little unsteady. Face. Symmetrical. Lips and tongue are normal. Neck. Symmetrical. Slightly kyphotic. No meningismus. Lymphatics. No submandibular cervical supraclavicular or epitrochlear adenopathy Chest. Expiration is much better. Wheezes have resolved. There is no significant large airway congestion. There is no significant chest wall tenderness. This represents a significant improvement.. Heart. No gallop Abdomen. Nontender. Positive bowel sounds Extremities. No evidence of deep venous thrombophlebitis. Skin. 03/28/2017. Patient has easy bruising and she is bleeding some from her IV site. I am going to discontinue her Lovenox. She is up and moving and deep venous thrombophlebitis is not a significant risk at this time. Plan: 03/28/2017 #1: Agree with present antibiotics but will add Cleocin 300 mg IV every 6 hours #2: Repeat chest x-ray in the morning #3: Check cold agglutinins and Legionella #4: Sputum for gram stain, culture, and sensitivity #5: Check theophylline level #6: Check TSH and free T4 #7: See orders 03/29/2017. 1. Add Mucinex 2. Add SSKI. 3. Could be close to discharge. Let us reevaluate Sunday morning 03/30/2016. 1. Patient is ready for discharge. 2. See today's note above for suggestions on discharge medicines 3. Follow-up appointment has been made for the patient. Exam (Progress Note) - Constitutional Vitals: Period Temp Pulse Resp BP Sys/Rahman Pulse Ox Last 24 Hr 97.4 F-98.6 F 90-118 16-181 120-143/49-80 93-99 Results - Labs CBC & BMP: 03/28/17 04:26 03/28/17 04:26
--- NOTE | 2017-03-30 10:00 | Discharge Summary ---
Hospital Course - Hospital Course Hospital Course: 81-year-old lady who presented with one-week history of worsening cough shortness of breath. She has an extensive medical history which includes hypertension, hypothyroidism, asthma, COPD, GERD. Her shortness of breath with associated chest tightness but no pain. She also had sputum production which was green/yellow in color, no blood. She was admitted to the floor, treated with DuoNeb, steroids and antibiotics and high respiratory status did improve markedly. Pulmonology was consulted to help in management of respiratory illness COPD. On the day of discharge was my first encounter with patient. She was comfortably in her bed, in no obvious respiratory distress, vital signs stable. I discussed her discharge with pulmonology, cleared for discharge to outpatient follow-up pain clinic. Rest of hospital stay was uneventful and achieved maximum benefit of care. - Time spent with patient Time with patient DS: Greater than 30 minutes (Time taken in coordination of posthospital care and documentation) Specialty Discharge - Follow Up or Referrals Follow up with: Brenda Mauro CFNP [Advanced Practice Nurse] - 04/19/17 3:00 pm Discharge Plan - Discharge Data Disposition: Disch To Home/Self Care Condition at Discharge: Stable Discharge Diet: advance to your usual diet Activity: resume usual activities as tolerated - Discharge Medications New Levofloxacin Tab [Levaquin Tab] 250 mg PO DAILY #7 tablet Potassium Iodide Oral Soln [Sski] 300 mg PO TID #7 bottle predniSONE [Prednisone] 10 mg PO BIDAC #20 tab.ds.pk Continue Alendronate Sodium 35 mg PO Q7DAY Levothyroxine Tab [Synthroid Tab] 75 mcg PO DAILY Albuterol/Ipratropium Neb [Duoneb] 3 ml RESP TX RT Q4H PRN #0 nebulization solution PRN Reason: Shortness Of Breath/Wheezing Pantoprazole Tab [Protonix Tab] 40 mg PO DAILY #30 tablet Montelukast Tab [Singulair Tab] 10 mg PO BID #60 tablet hydroCHLOROthiazide [Hydrochlorothiazide] 25 mg PO BID Fluticasone 50 Mcg Nasal [place] [Flonase Nasal [place]] 2 spray BOTH NARES DAILY PRN #1 nasal spray PRN Reason: Allergy Symptoms Magnesium Chloride [Slow Mag] 64 mg PO TID Dicyclomine Cap/Tab [Bentyl Cap/Tab] 10 mg PO TID #90 capsule Potassium Chloride Cap/Tab [K Dur] 20 meq PO BID #60 tablet Sucralfate Tab [Carafate Tab] 1 gm PO ACHS #120 tablet Albuterol Sulfate [Proair HFA] 2 puff INH Q6H PRN PRN Reason: Shortness Of Breath/Wheezing Theophylline ER Cap (24 Hr) [Jass-24] 300 mg PO BID Cetirizine Tab [ZyrTEC Tab] 10 mg PO BEDTIME tablet Discontinued metOLazone [Metolazone] 2.5 mg PO DAILY - Follow Up or Referral Follow Up: Brenda Mauro CFNP [Advanced Practice Nurse] - 04/19/17 3:00 pm - Forms/Instructions Instructions: Chronic Obstructive Pulmonary Disease (DC) Additional Discharge Instructions: PCP in 1-2 weeks. Pulmonology as scheduled Exam - Constitutional Vitals: Period Temp Pulse Resp BP Sys/Rahman Pulse Ox Last 24 Hr 97.4 F-98.6 F 90-118 16-181 120-143/49-80 93-99 Discharge Results Procedures and tests throughout hospitalization: Pending Orders 03/27/17 17:18 Blood Culture Stat 03/28/17 11:33 Legionella Pneumophilia Ab Routine 03/30/17 08:15 Sputum Culture and Gram Stain Routine Labs on day of discharge: Labs from last 24 hours 03/30/17 03/29/17 03/29/17 08:32 20:49 16:22 POC Glucose 171 H 130 H 115 H 03/29/17 11:20 POC Glucose 87 Preliminary micro results at discharge 03/27/17 17:18 Blood Culture - Preliminary Blood No growth at 1 day 03/27/17 17:18 Blood Culture - Preliminary Blood No growth at 1 day DS: Provider Date of admission: 03/27/17 19:18 Primary care physician: Taqueria Samaniego MD Attending physician on admission: Socrates Titus MD Consults: 03/28/17 02:19 Consult to Pastoral Services [CONS] Routine Comment: Pastoral Screen: Declines Visit Pastoral Screen Source of Request: Patient 03/28/17 09:17 Consult to Physician [CONS] Routine Comment: patient of yours Consulting Provider: Taqueria Samaniego Consult Notification Comment: SPOKE TO BRENDA @ [id number] 03/30/17 09:20 Consult to Case Mgmt/Social Srvs [CONS] Routine Reason for Case Mgmt/Social Srvs: Home Health Discharging clinician: Derik Gutierrez MD
[2017-03-30 12:36] VITALS: BP 141/89
[2017-04-03] MEDS ORDERED: FOSAMAX PO SCH (09:00)
== END 2017-03-30 13:30 | disposition home health service (06) | DRG 190 ==
LOC: N.ED 16:12 → N.EDINP 19:18 → SUATTDRO 19:18 → N.2E 19:58
PROVIDERS: ADMIT Internal Medicine Infectious Disease; ATTEND Internal Medicine

== ENCOUNTER 2017-12-23 07:24 | Inpatient (IN) ==
[2017-12-23] MEDS ORDERED: ALBUTEROL/IPRATROPIUM 3 ML NEB RESP TX STA ×2 (08:24→13:05)
[2017-12-23] MEDS ORDERED: methylPREDNISolone SOD SUC 125 MG/2 ML VIAL IV STA (08:24)
[2017-12-23] MEDS ORDERED: methylPREDNISolone SOD SUC 125 MG/2 ML VIAL ONE (08:34)
[2017-12-23 08:56] LABS: Basophils # 0.1 10*3/uL (0.0-0.2); Basophils % 0.6 % (0.0-0.8); Eosinophils # 0.8 10*3/uL (0.0-0.87); Eosinophils % 9.5 % (0.00-10.9); Hematocrit 39.3 VOL% (35.7-47.0); Hemoglobin 12.8 GM/DL (12.0-16.0); Immature Granulocytes % 0.7 %; Immature Granulocytes Absolute 0.06 #; Lymphocytes % 11.9 % (21.3-54.2); Mean Corpuscular HGB Conc 32.6 GM/DL (32-36); Mean Corpuscular Hemoglobin 29 PG (27-34); Mean Corpuscular Volume 87.9 FL (87-102); Mean Platelet Volume 9.9 FL (9.6-12.0); Monocytes # 1.1 10*3/uL (0.11-0.8); Monocytes % 12.3 % (1.7-12.7); Neutrophils # 5.6 10*3/uL (1.4-7.4); Platelet Count 288 T/CUMM (130-400); Red Blood Count 4.47 MC/CUMM (3.8-5.5); Red Cell Distribution Width 14.5 % (9.3-17.3); White Blood Count 8.6 T/CUMM (4-12)
[2017-12-23 09:27] LABS: Albumin 3.8 G/DL (3.4-5.0); Bilirubin,Total 0.6 MG/DL (0.2-1.0); Calcium 9.4 MG/DL (8.5-10.1); Potassium 3.2 MMOL/L (3.5-5.1); Total Protein 6.6 G/DL (6.4-8.3)
[2017-12-23] MEDS ORDERED: LEVOFLOXACIN INJ 750 MG in PREMIX 1 EACH IV STA (09:55)
[2017-12-23] MEDS ORDERED: LEVOFLOXACIN INJ 150 ML IV ONE (10:09)
[2017-12-23] MEDS ORDERED: ONDANSETRON 4 MG/2 ML VIAL IV PRN (13:07)
[2017-12-23] MEDS ORDERED: diphenhydrAMINE CAP 25 MG CAPSULE PO PRN (13:07)
[2017-12-23] MEDS ORDERED: MORPHINE 2 MG/1 ML SYRINGE IV PRN (13:07)
[2017-12-23] MEDS ORDERED: ACETAMINOPHEN 325 MG TABLET PO PRN (13:07)
[2017-12-23] MEDS ORDERED: ALBUTEROL 2.5 MG/3 ML NEB RESP TX PRN (13:10)
[2017-12-23] MEDS ORDERED: MONTELUKAST 10 MG TABLET PO SCH (13:36)
[2017-12-23] MEDS: BUDESONIDE/FORMOTEROL 160-4.5 INHALER 6 GM INH SCH ×2 (13:54→21:53)
[2017-12-23] MEDS: LEVOTHYROXINE 75 MCG TABLET PO SCH (14:30)
[2017-12-23] MEDS: amLODIPine 5 MG TABLET PO SCH ×2 (14:32→21:53)
[2017-12-23] MEDS: POTASSIUM CHLORIDE 20 MEQ TABLET PO PRN (14:32)
[2017-12-23] MEDS: PANTOPRAZOLE 40 MG TABLET PO SCH (14:32)
[2017-12-23] MEDS: metOLazone 2.5 MG TABLET PO SCH (14:32)
[2017-12-23] MEDS: hydroCHLOROthiazide 25 MG TABLET PO SCH ×2 (14:32→21:54)
[2017-12-23] MEDS: DILTIAZEM CD 180 MG CAPSULE PO SCH (14:32)
[2017-12-23] MEDS: methylPREDNISolone SOD SUC 40 MG/1 ML VIAL IV SCH ×2 (14:33→21:52)
[2017-12-23] MEDS: POTASSIUM CHLORIDE 10 MEQ TABLET PO SCH ×2 (14:36→21:54)
[2017-12-23] MEDS ORDERED: ALBUTEROL/IPRATROPIUM 3 ML NEB RESP TX PRN (15:12)
[2017-12-23] MEDS ORDERED: AMINOPHYLLINE 250 MG in SODIUM CHLORIDE 0.9% 100 ML IV ONE (16:00)
[2017-12-23] MEDS: ALBUTEROL/IPRATROPIUM 3 ML NEB RESP TX SCH (17:51)
[2017-12-23] MEDS: cefTAZidime 1,000 MG in SYRINGE 1 EACH IV SCH (21:53)
[2017-12-23] MEDS: CETIRIZINE 10 MG TABLET PO SCH (21:54)
[2017-12-23] MEDS: ENOXAPARIN 40 MG/0.4 ML SYRINGE SUBCUT SCH (21:54)
[2017-12-23] MEDS: MONTELUKAST 10 MG TABLET PO SCH (21:54)
[2017-12-23] MEDS ORDERED: AMINOPHYLLINE 500 MG in SODIUM CHLORIDE 0.9% 480 ML IV SCH (22:00)
[2017-12-24] MEDS: ALBUTEROL/IPRATROPIUM 3 ML NEB RESP TX SCH ×4 (00:46→19:20)
[2017-12-24] MEDS: methylPREDNISolone SOD SUC 40 MG/1 ML VIAL IV SCH ×4 (02:45→21:33)
[2017-12-24] MEDS: cefTAZidime 1,000 MG in SYRINGE 1 EACH IV SCH ×3 (04:47→21:21)
[2017-12-24 05:15] LABS: Hematocrit 34.1 VOL% (35.7-47.0); Hemoglobin 11.7 GM/DL (12.0-16.0); Immature Granulocytes Absolute 0.05 #; Lymphocytes # 0.4 10*3/uL (1.4-4.0); Lymphocytes % 7.3 % (21.3-54.2); Mean Corpuscular HGB Conc 34.3 GM/DL (32-36); Mean Corpuscular Hemoglobin 29 PG (27-34); Mean Corpuscular Volume 84.4 FL (87-102); Mean Platelet Volume 10.5 FL (9.6-12.0); Monocytes # 0.1 10*3/uL (0.11-0.8); Monocytes % 1.6 % (1.7-12.7); Neutrophils # 4.5 10*3/uL (1.4-7.4); Neutrophils % 90.1 % (38.7-73.9); Platelet Count 277 T/CUMM (130-400); Red Blood Count 4.04 MC/CUMM (3.8-5.5); Red Cell Distribution Width 13.8 % (9.3-17.3)
[2017-12-24 05:46] LABS: Calcium 8.9 MG/DL (8.5-10.1); Osmolality,Calculated 275.1 MOS/KG (273-304); Potassium 3.4 MMOL/L (3.5-5.1)
[2017-12-24] MEDS: LEVOTHYROXINE 75 MCG TABLET PO SCH (05:57)
[2017-12-24] MEDS: DILTIAZEM CD 180 MG CAPSULE PO SCH (08:37)
[2017-12-24] MEDS: amLODIPine 5 MG TABLET PO SCH (08:37)
[2017-12-24] MEDS: metOLazone 2.5 MG TABLET PO SCH (08:37)
[2017-12-24] MEDS: PANTOPRAZOLE 40 MG TABLET PO SCH (08:37)
[2017-12-24] MEDS: POTASSIUM CHLORIDE 10 MEQ TABLET PO SCH ×2 (08:37→21:15)
[2017-12-24] MEDS: MONTELUKAST 10 MG TABLET PO SCH ×2 (08:37→21:14)
[2017-12-24] MEDS: hydroCHLOROthiazide 25 MG TABLET PO SCH ×2 (08:37→21:15)
[2017-12-24] MEDS: BUDESONIDE/FORMOTEROL 160-4.5 INHALER 6 GM INH SCH ×2 (08:38→21:15)
[2017-12-24] MEDS: LEVOFLOXACIN INJ 500 MG in PREMIX 1 EACH IV SCH (08:38)
[2017-12-24] MEDS ORDERED: LEVOFLOXACIN INJ 750 MG in PREMIX 1 EACH IV SCH (09:00)
[2017-12-24] MEDS ORDERED: DILTIAZEM CD 180 MG CAPSULE PO SCH (09:19)
[2017-12-24] MEDS ORDERED: DILTIAZEM CD 120 MG CAPSULE PO ONE (10:53)
[2017-12-24] MEDS ORDERED: DILTIAZEM 60 MG TABLET PO ONE (10:54)
[2017-12-24] MEDS: DICLOFENAC 1% GEL 100 GM TUBE TOP SCH ×3 (14:29→21:36)
[2017-12-24] MEDS: CETIRIZINE 10 MG TABLET PO SCH (21:14)
[2017-12-24] MEDS: ENOXAPARIN 40 MG/0.4 ML SYRINGE SUBCUT SCH (21:19)
[2017-12-24] MEDS: AMINOPHYLLINE IV SCH (23:12)
[2017-12-24] MEDS: SODIUM CHLORIDE 0.9% IV SCH (23:12)
[2017-12-25] MEDS: ALBUTEROL/IPRATROPIUM 3 ML NEB RESP TX SCH ×4 (00:35→19:34)
[2017-12-25] MEDS: methylPREDNISolone SOD SUC 40 MG/1 ML VIAL IV SCH ×4 (02:43→20:52)
[2017-12-25] MEDS: LEVOTHYROXINE 75 MCG TABLET PO SCH (05:30)
[2017-12-25] MEDS: cefTAZidime 1,000 MG in SYRINGE 1 EACH IV SCH (05:30)
[2017-12-25 05:42] LABS: Basophils % 0.1 % (0.0-0.8); Hematocrit 33.6 VOL% (35.7-47.0); Hemoglobin 11.6 GM/DL (12.0-16.0); Immature Granulocytes % 0.8 %; Immature Granulocytes Absolute 0.11 #; Lymphocytes # 0.3 10*3/uL (1.4-4.0); Lymphocytes % 2.3 % (21.3-54.2); Mean Corpuscular HGB Conc 34.5 GM/DL (32-36); Mean Corpuscular Hemoglobin 30 PG (27-34); Mean Corpuscular Volume 85.5 FL (87-102); Mean Platelet Volume 10.5 FL (9.6-12.0); Monocytes # 0.4 10*3/uL (0.11-0.8); Monocytes % 2.8 % (1.7-12.7); Neutrophils # 12.8 10*3/uL (1.4-7.4); Platelet Count 294 T/CUMM (130-400); Red Blood Count 3.93 MC/CUMM (3.8-5.5); Red Cell Distribution Width 14.2 % (9.3-17.3); White Blood Count 13.6 T/CUMM (4-12)
[2017-12-25 06:04] LABS: Giant Platelets Few; Hypochromasia 1+; Lymphocytes 3 % (20-55); Platelet Estimate Adequate; Segmented Neutrophils 92 % (50-85); Total Cells Counted 100
[2017-12-25 06:15] LABS: Calcium 9.5 MG/DL (8.5-10.1); Osmolality,Calculated 280.7 MOS/KG (273-304); Potassium 2.9 MMOL/L (3.5-5.1)
[2017-12-25 06:21] LABS: Risk Ratio 1.89; VLDL CHOLESTEROL 6.6 MG/DL
[2017-12-25] MEDS ORDERED: amLODIPine 5 MG TABLET PO SCH (09:00)
[2017-12-25] MEDS ORDERED: DILTIAZEM CD 240 MG CAPSULE PO SCH (09:00)
[2017-12-25] MEDS: LEVOFLOXACIN INJ 500 MG in PREMIX 1 EACH IV SCH (10:15)
[2017-12-25] MEDS: POTASSIUM CHLORIDE 10 MEQ TABLET PO SCH ×2 (10:17→20:43)
[2017-12-25] MEDS: POTASSIUM CHLORIDE 20 MEQ TABLET PO PRN ×3 (10:17→16:38)
[2017-12-25] MEDS: PANTOPRAZOLE 40 MG TABLET PO SCH (10:17)
[2017-12-25] MEDS: DICLOFENAC 1% GEL 100 GM TUBE TOP SCH ×4 (10:18→20:51)
[2017-12-25] MEDS: hydroCHLOROthiazide 25 MG TABLET PO SCH (10:18)
[2017-12-25] MEDS: MONTELUKAST 10 MG TABLET PO SCH ×2 (10:18→20:43)
[2017-12-25] MEDS: metOLazone 2.5 MG TABLET PO SCH (10:18)
[2017-12-25] MEDS: BUDESONIDE/FORMOTEROL 160-4.5 INHALER 6 GM INH SCH ×2 (10:18→21:48)
[2017-12-25] MEDS ORDERED: PHENOL 1.4% THROAT SPRAY 177 ML BOTTLE PO PRN (10:40)
[2017-12-25] MEDS: AMINOPHYLLINE IV SCH (12:00)
[2017-12-25] MEDS: SODIUM CHLORIDE 0.9% IV SCH (12:00)
[2017-12-25] MEDS: MYLANTA/LIDO VISC 2:1 300 ML BOTTLE SWISH/SWAL SCH ×3 (13:19→20:45)
[2017-12-25] MEDS ORDERED: SODIUM CHLORIDE 0.9% IV SCH (16:00)
[2017-12-25] MEDS ORDERED: AMINOPHYLLINE IV SCH (16:00)
[2017-12-25] MEDS ORDERED: DILTIAZEM CD 180 MG CAPSULE PO SCH (16:07)
[2017-12-25] MEDS: ATORVASTATIN 20 MG TABLET PO SCH (20:42)
[2017-12-25] MEDS: CETIRIZINE 10 MG TABLET PO SCH (20:44)
[2017-12-25] MEDS: ENOXAPARIN 40 MG/0.4 ML SYRINGE SUBCUT SCH (20:47)
[2017-12-26] MEDS: ALBUTEROL/IPRATROPIUM 3 ML NEB RESP TX SCH ×4 (00:33→20:46)
[2017-12-26] MEDS: methylPREDNISolone SOD SUC 40 MG/1 ML VIAL IV SCH ×3 (02:36→21:39)
[2017-12-26] MEDS: LEVOTHYROXINE 75 MCG TABLET PO SCH (06:12)
[2017-12-26 06:55] LABS: Basophils % 0.2 % (0.0-0.8); Hematocrit 38.3 VOL% (35.7-47.0); Hemoglobin 12.8 GM/DL (12.0-16.0); Immature Granulocytes % 1.7 %; Immature Granulocytes Absolute 0.23 #; Lymphocytes # 0.3 10*3/uL (1.4-4.0); Mean Corpuscular HGB Conc 33.4 GM/DL (32-36); Mean Corpuscular Hemoglobin 29 PG (27-34); Mean Corpuscular Volume 86.7 FL (87-102); Mean Platelet Volume 9.9 FL (9.6-12.0); Monocytes # 0.5 10*3/uL (0.11-0.8); Monocytes % 3.5 % (1.7-12.7); Neutrophils # 12.3 10*3/uL (1.4-7.4); Neutrophils % 92.6 % (38.7-73.9); Platelet Count 312 T/CUMM (130-400); Red Blood Count 4.42 MC/CUMM (3.8-5.5); Red Cell Distribution Width 14.4 % (9.3-17.3); White Blood Count 13.3 T/CUMM (4-12)
[2017-12-26] MEDS: MYLANTA/LIDO VISC 2:1 300 ML BOTTLE SWISH/SWAL SCH ×4 (07:30→21:44)
[2017-12-26 07:33] LABS: Band Neutrophils 2 % (0-10); Calcium 9.2 MG/DL (8.5-10.1); Hypochromasia 1+; Lymphocytes 4 % (20-55); Microcytosis 1+; Osmolality,Calculated 276.8 MOS/KG (273-304); Platelet Estimate Normal; Potassium 2.9 MMOL/L (3.5-5.1); Segmented Neutrophils 92 % (50-85); Total Cells Counted 100
[2017-12-26] MEDS: BUDESONIDE/FORMOTEROL 160-4.5 INHALER 6 GM INH SCH ×2 (09:00→21:43)
[2017-12-26] MEDS: DICLOFENAC 1% GEL 100 GM TUBE TOP SCH ×4 (09:00→21:43)
[2017-12-26] MEDS: metOLazone 2.5 MG TABLET PO SCH (09:00)
[2017-12-26] MEDS ORDERED: POTASSIUM CHLORIDE 20 MEQ TABLET PO ONE (10:05)
[2017-12-26] MEDS: POTASSIUM CHLORIDE 10 MEQ TABLET PO SCH ×2 (10:58→21:39)
[2017-12-26] MEDS: LEVOFLOXACIN INJ 500 MG in PREMIX 1 EACH IV SCH (10:58)
[2017-12-26] MEDS: hydroCHLOROthiazide 25 MG TABLET PO SCH (10:58)
[2017-12-26] MEDS: PANTOPRAZOLE 40 MG TABLET PO SCH (10:59)
[2017-12-26] MEDS: MONTELUKAST 10 MG TABLET PO SCH ×2 (10:59→21:38)
[2017-12-26] MEDS: AMINOPHYLLINE IV SCH (13:00)
[2017-12-26] MEDS: SODIUM CHLORIDE 0.9% IV SCH (13:00)
[2017-12-26] MEDS: ENOXAPARIN 40 MG/0.4 ML SYRINGE SUBCUT SCH (21:38)
[2017-12-26] MEDS: ATORVASTATIN 20 MG TABLET PO SCH (21:38)
[2017-12-26] MEDS: CETIRIZINE 10 MG TABLET PO SCH (21:39)
[2017-12-27] MEDS: ALBUTEROL/IPRATROPIUM 3 ML NEB RESP TX SCH ×4 (01:35→19:45)
[2017-12-27 05:36] LABS: Basophils % 0.2 % (0.0-0.8); Hematocrit 38.6 VOL% (35.7-47.0); Hemoglobin 13.4 GM/DL (12.0-16.0); Immature Granulocytes % 2.4 %; Immature Granulocytes Absolute 0.32 #; Lymphocytes # 0.5 10*3/uL (1.4-4.0); Lymphocytes % 3.4 % (21.3-54.2); Mean Corpuscular HGB Conc 34.7 GM/DL (32-36); Mean Corpuscular Hemoglobin 30 PG (27-34); Mean Corpuscular Volume 85.4 FL (87-102); Mean Platelet Volume 10.1 FL (9.6-12.0); Monocytes # 0.6 10*3/uL (0.11-0.8); Monocytes % 4.3 % (1.7-12.7); Neutrophils # 12.1 10*3/uL (1.4-7.4); Neutrophils % 89.7 % (38.7-73.9); Platelet Count 320 T/CUMM (130-400); Red Blood Count 4.52 MC/CUMM (3.8-5.5); Red Cell Distribution Width 14.4 % (9.3-17.3); White Blood Count 13.5 T/CUMM (4-12)
[2017-12-27] MEDS: LEVOTHYROXINE 75 MCG TABLET PO SCH (05:39)
[2017-12-27 05:40] LABS: INR 0.9; Partial Thromboplastin Time 25.8 SECS (0-40)
[2017-12-27 06:01] LABS: Hypochromasia 1+; Lymphocytes 2 % (20-55); Microcytosis Slight; Platelet Estimate Normal; Segmented Neutrophils 94 % (50-85); Total Cells Counted 100
[2017-12-27 06:09] LABS: Calcium 9.4 MG/DL (8.5-10.1); Osmolality,Calculated 276.8 MOS/KG (273-304)
[2017-12-27] MEDS: BUDESONIDE/FORMOTEROL 160-4.5 INHALER 6 GM INH SCH ×3 (06:12→22:56)
[2017-12-27] MEDS ORDERED: diphenhydrAMINE 50 MG/1 ML VIAL IM ONE (07:30)
[2017-12-27] MEDS ORDERED: LIDOCAINE 1% 20 ML VIAL MISC INJ ONE (08:00)
[2017-12-27] MEDS ORDERED: LIDOCAINE 2% VISCOUS 100 ML BOTTLE SWISH/SPIT ONE (08:00)
[2017-12-27] MEDS ORDERED: LIDOCAINE 2% 20 ML VIAL RESP TX ONE (08:00)
[2017-12-27] MEDS ORDERED: MIDAZOLAM 2 MG/2 ML VIAL IV ONE (08:00)
[2017-12-27] MEDS: MYLANTA/LIDO VISC 2:1 300 ML BOTTLE SWISH/SWAL SCH ×4 (08:20→22:55)
[2017-12-27] MEDS: MONTELUKAST 10 MG TABLET PO SCH ×3 (09:00→22:55)
[2017-12-27] MEDS: hydroCHLOROthiazide 25 MG TABLET PO SCH ×2 (09:00→12:50)
[2017-12-27] MEDS: DILTIAZEM CD 240 MG CAPSULE PO SCH ×3 (09:00→22:55)
[2017-12-27] MEDS: methylPREDNISolone SOD SUC 40 MG/1 ML VIAL IV SCH ×3 (09:00→22:56)
[2017-12-27] MEDS: DICLOFENAC 1% GEL 100 GM TUBE TOP SCH ×4 (09:00→22:56)
[2017-12-27] MEDS: PANTOPRAZOLE 40 MG TABLET PO SCH ×2 (09:00→12:50)
[2017-12-27] MEDS: DORNASE ALFA 2.5 MG/2.5 ML VIAL RESP TX SCH ×2 (11:05→19:45)
[2017-12-27] MEDS: POTASSIUM CHLORIDE 10 MEQ TABLET PO SCH ×3 (12:06→22:55)
[2017-12-27] MEDS: LEVOFLOXACIN INJ 500 MG in PREMIX 1 EACH IV SCH (12:40)
[2017-12-27] MEDS: METOPROLOL SUCCINATE XL 25 MG TABLET PO SCH (12:50)
[2017-12-27] MEDS: LISINOPRIL 10 MG TABLET PO SCH (12:50)
[2017-12-27] MEDS: SODIUM CHLORIDE 0.9% IV SCH (14:30)
[2017-12-27] MEDS: AMINOPHYLLINE IV SCH (14:30)
[2017-12-27] MEDS ORDERED: THEOPHYLLINE ER (24 HR) 200 MG CAPSULE PO SCH (17:00)
[2017-12-27] MEDS: ENOXAPARIN 40 MG/0.4 ML SYRINGE SUBCUT SCH (22:55)
[2017-12-27] MEDS: ATORVASTATIN 20 MG TABLET PO SCH (22:55)
[2017-12-27] MEDS: DOCUSATE SODIUM 100 MG CAPSULE PO PRN (22:56)
[2017-12-27] MEDS: CETIRIZINE 10 MG TABLET PO SCH (22:56)
[2017-12-28] MEDS: ALBUTEROL/IPRATROPIUM 3 ML NEB RESP TX SCH ×4 (00:25→19:35)
[2017-12-28 05:15] LABS: Basophils # 0.1 10*3/uL (0.0-0.2); Basophils % 0.6 % (0.0-0.8); Hematocrit 40.8 VOL% (35.7-47.0); Hemoglobin 13.4 GM/DL (12.0-16.0); Immature Granulocytes % 4.3 %; Immature Granulocytes Absolute 0.57 #; Lymphocytes # 0.6 10*3/uL (1.4-4.0); Lymphocytes % 4.4 % (21.3-54.2); Mean Corpuscular HGB Conc 32.8 GM/DL (32-36); Mean Corpuscular Hemoglobin 29 PG (27-34); Mean Corpuscular Volume 88.1 FL (87-102); Mean Platelet Volume 10.1 FL (9.6-12.0); Monocytes # 0.7 10*3/uL (0.11-0.8); Monocytes % 4.9 % (1.7-12.7); Neutrophils # 11.4 10*3/uL (1.4-7.4); Neutrophils % 85.8 % (38.7-73.9); Platelet Count 339 T/CUMM (130-400); Red Blood Count 4.63 MC/CUMM (3.8-5.5); Red Cell Distribution Width 14.2 % (9.3-17.3); White Blood Count 13.3 T/CUMM (4-12)
[2017-12-28 05:41] LABS: Calcium 9.2 MG/DL (8.5-10.1)
[2017-12-28 05:42] LABS: Band Neutrophils 1 % (0-10); Hypochromasia 1+; Lymphocytes 7 % (20-55); Microcytosis Slight; Platelet Estimate Adequate; Segmented Neutrophils 89 % (50-85); Total Cells Counted 100
[2017-12-28] MEDS: LEVOTHYROXINE 75 MCG TABLET PO SCH (06:20)
[2017-12-28] MEDS: DORNASE ALFA 2.5 MG/2.5 ML VIAL RESP TX SCH ×2 (07:48→19:35)
[2017-12-28] MEDS: MYLANTA/LIDO VISC 2:1 300 ML BOTTLE SWISH/SWAL SCH ×5 (10:44→21:06)
[2017-12-28] MEDS: METOPROLOL SUCCINATE XL 25 MG TABLET PO SCH (10:44)
[2017-12-28] MEDS: POTASSIUM CHLORIDE 10 MEQ TABLET PO SCH ×2 (10:44→21:07)
[2017-12-28] MEDS: DILTIAZEM CD 240 MG CAPSULE PO SCH ×2 (10:45→21:04)
[2017-12-28] MEDS: LEVOFLOXACIN INJ 500 MG in PREMIX 1 EACH IV SCH (10:46)
[2017-12-28] MEDS: PANTOPRAZOLE 40 MG TABLET PO SCH (10:46)
[2017-12-28] MEDS: MONTELUKAST 10 MG TABLET PO SCH ×2 (10:46→21:04)
[2017-12-28] MEDS: hydroCHLOROthiazide 25 MG TABLET PO SCH (10:46)
[2017-12-28] MEDS: LISINOPRIL 10 MG TABLET PO SCH (10:47)
[2017-12-28] MEDS: methylPREDNISolone SOD SUC 40 MG/1 ML VIAL IV SCH (10:47)
[2017-12-28] MEDS: BUDESONIDE/FORMOTEROL 160-4.5 INHALER 6 GM INH SCH ×2 (10:47→21:07)
[2017-12-28] MEDS: DICLOFENAC 1% GEL 100 GM TUBE TOP SCH ×4 (10:47→21:08)
[2017-12-28] MEDS: CLORAZEPATE 3.75 MG TABLET PO SCH ×3 (12:48→21:05)
[2017-12-28] MEDS: ENOXAPARIN 40 MG/0.4 ML SYRINGE SUBCUT SCH ×2 (21:00→21:04)
[2017-12-28] MEDS: ATORVASTATIN 20 MG TABLET PO SCH (21:04)
[2017-12-28] MEDS: CETIRIZINE 10 MG TABLET PO SCH (21:04)
[2017-12-28] MEDS: POTASSIUM CHLORIDE 20 MEQ TABLET PO PRN (21:06)
[2017-12-29] MEDS: ALBUTEROL/IPRATROPIUM 3 ML NEB RESP TX SCH ×4 (00:04→19:07)
[2017-12-29] MEDS: LEVOTHYROXINE 75 MCG TABLET PO SCH (05:56)
[2017-12-29 06:24] LABS: Basophils # 0.1 10*3/uL (0.0-0.2); Basophils % 0.6 % (0.0-0.8); Hematocrit 37.6 VOL% (35.7-47.0); Hemoglobin 12.7 GM/DL (12.0-16.0); Immature Granulocytes % 4.6 %; Immature Granulocytes Absolute 0.52 #; Lymphocytes # 0.8 10*3/uL (1.4-4.0); Lymphocytes % 7.4 % (21.3-54.2); Mean Corpuscular HGB Conc 33.8 GM/DL (32-36); Mean Corpuscular Hemoglobin 29 PG (27-34); Mean Corpuscular Volume 85.6 FL (87-102); Mean Platelet Volume 10.5 FL (9.6-12.0); Monocytes % 8.9 % (1.7-12.7); Neutrophils # 8.8 10*3/uL (1.4-7.4); Neutrophils % 78.5 % (38.7-73.9); Platelet Count 328 T/CUMM (130-400); Red Blood Count 4.39 MC/CUMM (3.8-5.5); White Blood Count 11.2 T/CUMM (4-12)
[2017-12-29 06:51] LABS: Calcium 8.6 MG/DL (8.5-10.1); Potassium 4.4 MMOL/L (3.5-5.1)
[2017-12-29 07:06] LABS: Lymphocytes 11 % (20-55); Segmented Neutrophils 81 % (50-85); Total Cells Counted 100
[2017-12-29 07:07] LABS: Hypochromasia 1+; Microcytosis 1+; Platelet Estimate Normal
[2017-12-29] MEDS: DORNASE ALFA 2.5 MG/2.5 ML VIAL RESP TX SCH ×2 (07:42→19:07)
[2017-12-29] MEDS: DICLOFENAC 1% GEL 100 GM TUBE TOP SCH ×4 (09:12→21:13)
[2017-12-29] MEDS: MYLANTA/LIDO VISC 2:1 300 ML BOTTLE SWISH/SWAL SCH ×5 (09:12→21:13)
[2017-12-29] MEDS: CLORAZEPATE 3.75 MG TABLET PO SCH ×3 (09:14→21:12)
[2017-12-29] MEDS: METOPROLOL SUCCINATE XL 25 MG TABLET PO SCH (09:14)
[2017-12-29] MEDS: LISINOPRIL 10 MG TABLET PO SCH (09:14)
[2017-12-29] MEDS: hydroCHLOROthiazide 25 MG TABLET PO SCH (09:14)
[2017-12-29] MEDS: DILTIAZEM CD 240 MG CAPSULE PO SCH ×2 (09:15→21:12)
[2017-12-29] MEDS: PANTOPRAZOLE 40 MG TABLET PO SCH (09:16)
[2017-12-29] MEDS: MONTELUKAST 10 MG TABLET PO SCH ×2 (09:16→21:12)
[2017-12-29] MEDS: LEVOFLOXACIN INJ 500 MG in PREMIX 1 EACH IV SCH (09:16)
[2017-12-29] MEDS: POTASSIUM CHLORIDE 10 MEQ TABLET PO SCH (09:16)
[2017-12-29] MEDS: methylPREDNISolone SOD SUC 40 MG/1 ML VIAL IV SCH (09:20)
[2017-12-29] MEDS: BUDESONIDE/FORMOTEROL 160-4.5 INHALER 6 GM INH SCH ×2 (09:24→21:13)
[2017-12-29] MEDS: DOCUSATE SODIUM 100 MG CAPSULE PO PRN (09:24)
[2017-12-29] MEDS: ATORVASTATIN 20 MG TABLET PO SCH (21:12)
[2017-12-29] MEDS: CETIRIZINE 10 MG TABLET PO SCH (21:12)
[2017-12-29] MEDS: ENOXAPARIN 40 MG/0.4 ML SYRINGE SUBCUT SCH (21:13)
[2017-12-30] MEDS: ALBUTEROL/IPRATROPIUM 3 ML NEB RESP TX SCH ×4 (01:13→21:11)
[2017-12-30 05:02] LABS: Basophils # 0.1 10*3/uL (0.0-0.2); Basophils % 0.8 % (0.0-0.8); Hematocrit 41.2 VOL% (35.7-47.0); Hemoglobin 13.9 GM/DL (12.0-16.0); Immature Granulocytes % 4.6 %; Immature Granulocytes Absolute 0.73 #; Lymphocytes # 1.5 10*3/uL (1.4-4.0); Lymphocytes % 9.4 % (21.3-54.2); Mean Corpuscular HGB Conc 33.7 GM/DL (32-36); Mean Corpuscular Hemoglobin 29 PG (27-34); Mean Corpuscular Volume 86.9 FL (87-102); Monocytes # 1.4 10*3/uL (0.11-0.8); Monocytes % 9.1 % (1.7-12.7); Neutrophils % 76.1 % (38.7-73.9); Platelet Count 384 T/CUMM (130-400); Red Blood Count 4.74 MC/CUMM (3.8-5.5); Red Cell Distribution Width 14.3 % (9.3-17.3); White Blood Count 15.8 T/CUMM (4-12)
[2017-12-30 05:23] LABS: Band Neutrophils 2 % (0-10); Lymphocytes 12 % (20-55); Platelet Estimate Normal; Segmented Neutrophils 84 % (50-85); Total Cells Counted 100
[2017-12-30 05:25] LABS: Potassium 4.6 MMOL/L (3.5-5.1)
[2017-12-30] MEDS: LEVOTHYROXINE 75 MCG TABLET PO SCH (05:58)
[2017-12-30] MEDS: DICLOFENAC 1% GEL 100 GM TUBE TOP SCH ×5 (06:02→21:14)
[2017-12-30] MEDS: DORNASE ALFA 2.5 MG/2.5 ML VIAL RESP TX SCH ×2 (06:57→21:11)
[2017-12-30] MEDS: MYLANTA/LIDO VISC 2:1 300 ML BOTTLE SWISH/SWAL SCH ×4 (07:48→21:15)
[2017-12-30] MEDS: PANTOPRAZOLE 40 MG TABLET PO SCH (09:45)
[2017-12-30] MEDS: DILTIAZEM CD 240 MG CAPSULE PO SCH ×2 (09:46→21:14)
[2017-12-30] MEDS: METOPROLOL SUCCINATE XL 25 MG TABLET PO SCH (09:46)
[2017-12-30] MEDS: CLORAZEPATE 3.75 MG TABLET PO SCH ×3 (09:46→21:14)
[2017-12-30] MEDS: POTASSIUM CHLORIDE 10 MEQ TABLET PO SCH (09:46)
[2017-12-30] MEDS: LISINOPRIL 10 MG TABLET PO SCH (09:46)
[2017-12-30] MEDS: hydroCHLOROthiazide 25 MG TABLET PO SCH (09:46)
[2017-12-30] MEDS: MONTELUKAST 10 MG TABLET PO SCH ×2 (09:46→21:14)
[2017-12-30] MEDS: BUDESONIDE/FORMOTEROL 160-4.5 INHALER 6 GM INH SCH ×2 (09:48→21:14)
[2017-12-30] MEDS: LEVOFLOXACIN INJ 500 MG in PREMIX 1 EACH IV SCH (10:41)
[2017-12-30] MEDS: methylPREDNISolone SOD SUC 40 MG/1 ML VIAL IV SCH (10:41)
[2017-12-30] MEDS: predniSONE 20 MG TABLET PO SCH (10:41)
[2017-12-30] MEDS: CETIRIZINE 10 MG TABLET PO SCH (21:14)
[2017-12-30] MEDS: ATORVASTATIN 20 MG TABLET PO SCH (21:14)
[2017-12-30] MEDS: ENOXAPARIN 40 MG/0.4 ML SYRINGE SUBCUT SCH (21:14)
[2017-12-31] MEDS: ALBUTEROL/IPRATROPIUM 3 ML NEB RESP TX SCH ×3 (01:21→13:30)
[2017-12-31 05:27] LABS: Basophils # 0.1 10*3/uL (0.0-0.2); Basophils % 0.8 % (0.0-0.8); Eosinophils % 0.1 % (0.00-10.9); Hematocrit 39.9 VOL% (35.7-47.0); Hemoglobin 13.4 GM/DL (12.0-16.0); Immature Granulocytes % 5.5 %; Immature Granulocytes Absolute 0.82 #; Lymphocytes # 1.6 10*3/uL (1.4-4.0); Lymphocytes % 10.5 % (21.3-54.2); Mean Corpuscular HGB Conc 33.6 GM/DL (32-36); Mean Corpuscular Hemoglobin 29 PG (27-34); Mean Corpuscular Volume 86.2 FL (87-102); Mean Platelet Volume 10.1 FL (9.6-12.0); Monocytes # 1.4 10*3/uL (0.11-0.8); Monocytes % 9.2 % (1.7-12.7); Neutrophils # 11.1 10*3/uL (1.4-7.4); Neutrophils % 73.9 % (38.7-73.9); Platelet Count 351 T/CUMM (130-400); Red Blood Count 4.63 MC/CUMM (3.8-5.5); Red Cell Distribution Width 14.2 % (9.3-17.3)
[2017-12-31 05:37] LABS: Calcium 8.9 MG/DL (8.5-10.1); Potassium 4.5 MMOL/L (3.5-5.1)
[2017-12-31 06:04] LABS: Hypochromasia 1+; Lymphocytes 7 % (20-55); Microcytosis Slight; Myelocytes 1 %; Platelet Estimate Normal; Segmented Neutrophils 81 % (50-85); Total Cells Counted 100
[2017-12-31] MEDS: LEVOTHYROXINE 75 MCG TABLET PO SCH (06:06)
[2017-12-31] MEDS: DORNASE ALFA 2.5 MG/2.5 ML VIAL RESP TX SCH (07:45)
[2017-12-31] MEDS: MYLANTA/LIDO VISC 2:1 300 ML BOTTLE SWISH/SWAL SCH ×2 (09:00→10:57)
[2017-12-31] MEDS ORDERED: LEVOFLOXACIN 500 MG TABLET PO SCH (09:00)
[2017-12-31] MEDS: MONTELUKAST 10 MG TABLET PO SCH (09:05)
[2017-12-31] MEDS: PANTOPRAZOLE 40 MG TABLET PO SCH (09:05)
[2017-12-31] MEDS: CLORAZEPATE 3.75 MG TABLET PO SCH (09:05)
[2017-12-31] MEDS: METOPROLOL SUCCINATE XL 25 MG TABLET PO SCH (09:06)
[2017-12-31] MEDS: BUDESONIDE/FORMOTEROL 160-4.5 INHALER 6 GM INH SCH (09:06)
[2017-12-31] MEDS: predniSONE 20 MG TABLET PO SCH (09:06)
[2017-12-31] MEDS: POTASSIUM CHLORIDE 10 MEQ TABLET PO SCH (09:06)
[2017-12-31] MEDS: DICLOFENAC 1% GEL 100 GM TUBE TOP SCH ×2 (09:07→14:01)
[2017-12-31] MEDS: LISINOPRIL 10 MG TABLET PO SCH (09:53)
[2017-12-31] MEDS: DILTIAZEM CD 240 MG CAPSULE PO SCH (09:53)
[2017-12-31] MEDS: hydroCHLOROthiazide 25 MG TABLET PO SCH (09:53)
[2017-12-31] MEDS ORDERED: AZELASTINE NASAL 137 MCG/SPRAY 30 ML BOTTLE BOTH NARES SCH (11:00)
[2017-12-31 12:18] VITALS: BP 97/58
[2017-12-31] MEDS ORDERED: predniSONE 10 MG TABLET PO SCH (14:00)
[2018-01-01] MEDS ORDERED: miSOPROStol 100 MCG TABLET PO SCH (09:00)
== END 2017-12-31 14:15 | disposition home or self-care (01) | DRG 190 ==
LOC: EDUNIT# → EDBD → N.ED 07:24 → N.EDINP 12:35 → SUATTDRO 12:35 → N.2E 13:35
PROVIDERS: ADMIT Hospitalist

== ENCOUNTER 2020-11-08 12:58 | Observation (INO) ==
[2020-11-08] MEDS ORDERED: SODIUM CHLORIDE 0.9% 500 ML IV STA (13:38)
[2020-11-08 13:58] LABS: Albumin 3.8 G/DL (3.4-5.0); Bilirubin,Total 0.4 MG/DL (0.2-1.0); Calcium 9.2 MG/DL (8.5-10.1); Osmolality,Calculated 257.9 MOS/KG (273-304); Potassium 3.6 MMOL/L (3.5-5.1); Total Protein 6.9 G/DL (6.4-8.3)
[2020-11-08 14:01] LABS: Basophils % 0.4 % (0.0-0.8); Eosinophils % 0.1 % (0.00-10.9); Hematocrit 39.7 VOL% (35.7-47.0); Hemoglobin 13.6 GM/DL (12.0-16.0); Immature Granulocytes % 2.1 %; Immature Granulocytes Absolute 0.17 #; Lymphocytes # 0.5 10*3/uL (1.4-4.0); Lymphocytes % 6.4 % (21.3-54.2); Mean Corpuscular HGB Conc 34.3 GM/DL (32-36); Mean Corpuscular Volume 87.8 FL (87-102); Mean Platelet Volume 9.4 FL (9.6-12.0); Monocytes % 5.6 % (1.7-12.7); Neutrophils % 85.4 % (38.7-73.9); Platelet Count 359 T/CUMM (130-400); Red Blood Count 4.52 MC/CUMM (3.8-5.5); Red Cell Distribution Width 13.2 % (9.3-17.3)
[2020-11-08] MEDS ORDERED: GLUCAGON 1 MG VIAL IM PRN (16:30)
[2020-11-08] MEDS ORDERED: ACETAMINOPHEN 325 MG TABLET PO PRN (16:30)
[2020-11-08] MEDS ORDERED: ONDANSETRON 4 MG/2 ML VIAL IV PRN (16:30)
[2020-11-08] MEDS ORDERED: hydrALAZINE 20 MG/1 ML VIAL IV PRN (16:30)
[2020-11-08] MEDS ORDERED: guaiFENesin/DM ER 600-30 MG TABLET PO PRN (16:30)
[2020-11-08] MEDS ORDERED: DEXTROSE 50% 25 GM/50 ML VIAL IV PRN (16:30)
[2020-11-08] MEDS ORDERED: NITROGLYCERIN SL 0.4 MG TABLET SL PRN (16:33)
[2020-11-08 17:12] LABS: Risk Ratio 1.3; Thyroid Stimulating Hormone 1.36 uIU/ml (0.358-3.74); VLDL CHOLESTEROL 11.2 MG/DL
[2020-11-08] MEDS: SODIUM CHLORIDE 0.9% 1,000 ML IV SCH (18:32)
[2020-11-08] MEDS: ALBUTEROL 2.5 MG/3 ML NEB RESP TX PRN (20:30)
[2020-11-08] MEDS: metroNIDAZOLE 500 MG TABLET PO SCH (20:43)
[2020-11-08] MEDS ORDERED: ATORVASTATIN 20 MG TABLET PO SCH (21:00)
[2020-11-08 22:28] LABS: Bilirubin,Urine Negative (Negative); Blood, Urine Small mg/dL (Negative); Glucose,Urine (UA) Negative (Negative); Ketones,Urine Negative (Negative); Nitrite,Urine Negative (Negative); Protein,Urine Negative; RBC,Urine 1 /HPF (0-4); Urine Appearance CLEAR (Clear); Urine Color Straw (Yellow); Urine Specific Gravity 1.003 (1.001-1.035); Urine Urobilinogen < 2.0 EU/DL (0.2-1.0); WBC,Urine <1 /HPF (0-6)
[2020-11-09] MEDS: ALBUTEROL 2.5 MG/3 ML NEB RESP TX PRN ×2 (04:02→07:55)
[2020-11-09] MEDS: SODIUM CHLORIDE 0.9% 1,000 ML IV SCH (05:13)
[2020-11-09 06:29] LABS: Basophils # 0.1 10*3/uL (0.0-0.2); Basophils % 0.7 % (0.0-0.8); Eosinophils # 0.1 10*3/uL (0.0-0.87); Eosinophils % 1.3 % (0.00-10.9); Hematocrit 38.1 VOL% (35.7-47.0); Hemoglobin 12.8 GM/DL (12.0-16.0); Immature Granulocytes % 1.7 %; Immature Granulocytes Absolute 0.13 #; Lymphocytes # 1.4 10*3/uL (1.4-4.0); Lymphocytes % 17.8 % (21.3-54.2); Mean Corpuscular HGB Conc 33.6 GM/DL (32-36); Mean Corpuscular Volume 89.4 FL (87-102); Monocytes % 12.6 % (1.7-12.7); Neutrophils % 65.9 % (38.7-73.9); Platelet Count 320 T/CUMM (130-400); Red Blood Count 4.26 MC/CUMM (3.8-5.5); Red Cell Distribution Width 13.3 % (9.3-17.3); White Blood Count 7.6 T/CUMM (4-12)
[2020-11-09] MEDS ORDERED: LEVOTHYROXINE 75 MCG TABLET PO SCH (06:30)
[2020-11-09 06:43] LABS: Calcium 8.7 MG/DL (8.5-10.1); Osmolality,Calculated 265.1 MOS/KG (273-304); Potassium 3.2 MMOL/L (3.5-5.1)
[2020-11-09] MEDS: metroNIDAZOLE 500 MG TABLET PO SCH (08:33)
[2020-11-09] MEDS ORDERED: POTASSIUM CHLORIDE 20 MEQ TABLET PO SCH (09:00)
[2020-11-09] MEDS ORDERED: DILTIAZEM CD 180 MG CAPSULE PO SCH (09:00)
[2020-11-09] MEDS ORDERED: MONTELUKAST 10 MG TABLET PO SCH (09:00)
[2020-11-09] MEDS ORDERED: PANTOPRAZOLE 40 MG TABLET PO SCH (09:00)
[2020-11-09] MEDS ORDERED: METOPROLOL SUCCINATE XL 25 MG TABLET PO SCH (09:00)
[2020-11-09] MEDS ORDERED: POTASSIUM CHLORIDE 20 MEQ TABLET PO ONE (09:41)
[2020-11-09 12:13] VITALS: BP 149/63
== END 2020-11-09 13:47 | disposition home or self-care (01) ==
LOC: EDBD → EDUNIT# → N.EDINP 12:58 → N.ED 12:58 → N.EDINP 18:32 → N.TELES 18:48
PROVIDERS: ADMIT Internal Medicine; ATTEND Internal Medicine

== ENCOUNTER 2021-05-17 09:44 | Observation (INO) ==
[2021-05-17 10:25] LABS: Basophils # 0.1 10*3/uL (0.0-0.2); Basophils % 0.5 % (0.0-0.8); Eosinophils # 0.1 10*3/uL (0.0-0.87); Eosinophils % 1.3 % (0.00-10.9); Hematocrit 38.7 VOL% (35.7-47.0); Hemoglobin 12.7 GM/DL (12.0-16.0); Immature Granulocytes % 3.3 %; Immature Granulocytes Absolute 0.36 #; Lymphocytes # 0.7 10*3/uL (1.4-4.0); Lymphocytes % 6.2 % (21.3-54.2); Mean Corpuscular HGB Conc 32.8 GM/DL (32-36); Mean Corpuscular Volume 90.2 FL (87-102); Mean Platelet Volume 9.2 FL (9.6-12.0); Monocytes % 10.8 % (1.7-12.7); Neutrophils % 77.9 % (38.7-73.9); Platelet Count 270 T/CUMM (130-400); Red Blood Count 4.29 MC/CUMM (3.8-5.5); Red Cell Distribution Width 13.7 % (9.3-17.3); White Blood Count 10.8 T/CUMM (4-12)
[2021-05-17 11:04] LABS: Albumin 3.6 G/DL (3.4-5.0); Bilirubin,Total 0.5 MG/DL (0.20-1.00); Calcium 8.7 MG/DL (8.5-10.1); Osmolality,Calculated 267.2 MOS/KG (273-304); Potassium 3.2 MMOL/L (3.5-5.1); Thyroid Stimulating Hormone 1.86 uIU/ml (0.358-3.74); Total Protein 6.2 G/DL (6.4-8.2)
[2021-05-17 11:04] LABS: Bacteria,Urine Occasional /HPF (Few); Bilirubin,Urine Negative (Negative); Blood, Urine Moderate mg/dL (Negative); Glucose,Urine (UA) Negative (Negative); Ketones,Urine Negative (Negative); Nitrite,Urine Negative (Negative); Protein,Urine Negative; RBC,Urine 1 /HPF (0-4); Urine Appearance CLEAR (Clear); Urine Color Straw (Yellow); Urine Specific Gravity 1.005 (1.001-1.035); Urine Urobilinogen < 2.0 EU/DL (0.2-1.0)
[2021-05-17] MEDS ORDERED: ACETAMINOPHEN 325 MG TABLET PO PRN (11:15)
[2021-05-17] MEDS ORDERED: ONDANSETRON 4 MG/2 ML VIAL IV PRN (11:15)
[2021-05-17] MEDS ORDERED: GLUCAGON 1 MG VIAL IM PRN (11:15)
[2021-05-17] MEDS ORDERED: DEXTROSE 50% 25 GM/50 ML VIAL IV PRN (11:15)
[2021-05-17] MEDS ORDERED: MAGNESIUM SULF RIDER 4 GM/100 ML PREMIX IV PRN (11:19)
[2021-05-17] MEDS ORDERED: MAGNESIUM SULF RIDER 2 GM/50 ML PREMIX IV PRN (11:19)
[2021-05-17] MEDS ORDERED: POTASSIUM CHLORIDE 20 MEQ TABLET PO ONE (11:21)
[2021-05-17] MEDS ORDERED: NITROGLYCERIN SL 0.4 MG TABLET SL PRN (12:03)
[2021-05-17] MEDS: DILTIAZEM CD 180 MG CAPSULE PO SCH (13:14)
[2021-05-17] MEDS: METOPROLOL SUCCINATE XL 25 MG TABLET PO SCH (13:14)
[2021-05-17] MEDS ORDERED: POTASSIUM CHLORIDE 20 MEQ TABLET PO PRN (17:27)
[2021-05-17] MEDS ORDERED: ALBUTEROL 2.5 MG/3 ML NEB RESP TX PRN (17:52)
[2021-05-17] MEDS: ATORVASTATIN 20 MG TABLET PO SCH (22:23)
[2021-05-17] MEDS: ASCORBIC ACID 500 MG TABLET PO SCH (22:23)
[2021-05-18 05:30] LABS: Basophils # 0.1 10*3/uL (0.0-0.2); Basophils % 0.8 % (0.0-0.8); Eosinophils # 0.1 10*3/uL (0.0-0.87); Eosinophils % 1.8 % (0.00-10.9); Hematocrit 36.8 VOL% (35.7-47.0); Hemoglobin 12.2 GM/DL (12.0-16.0); Immature Granulocytes % 2.6 %; Lymphocytes # 1.1 10*3/uL (1.4-4.0); Lymphocytes % 14.3 % (21.3-54.2); Mean Corpuscular HGB Conc 33.2 GM/DL (32-36); Mean Corpuscular Volume 90.2 FL (87-102); Mean Platelet Volume 9.6 FL (9.6-12.0); Monocytes % 12.5 % (1.7-12.7); Platelet Count 268 T/CUMM (130-400); Red Blood Count 4.08 MC/CUMM (3.8-5.5); Red Cell Distribution Width 13.7 % (9.3-17.3); White Blood Count 7.7 T/CUMM (4-12)
[2021-05-18 05:55] LABS: Calcium 9.1 MG/DL (8.5-10.1); Potassium 3.5 MMOL/L (3.5-5.1)
[2021-05-18] MEDS ORDERED: ALBUTEROL 2.5 MG/3 ML NEB RESP TX PRN (08:46)
[2021-05-18] MEDS: MONTELUKAST 10 MG TABLET PO SCH (09:38)
[2021-05-18] MEDS: METOPROLOL SUCCINATE XL 25 MG TABLET PO SCH (09:38)
[2021-05-18] MEDS: THIAMINE 100 MG TABLET PO SCH (09:38)
[2021-05-18] MEDS: MAGNESIUM CHLORIDE 64 MG TABLET PO SCH ×3 (09:38→21:21)
[2021-05-18] MEDS: MULTIVITAMIN (BEROCCA) TABLET PO SCH (09:38)
[2021-05-18] MEDS: predniSONE 10 MG TABLET PO SCH (09:38)
[2021-05-18] MEDS: LEVOTHYROXINE 75 MCG TABLET PO SCH (09:39)
[2021-05-18] MEDS: ASCORBIC ACID 500 MG TABLET PO SCH ×2 (09:39→21:21)
[2021-05-18] MEDS: DILTIAZEM CD 180 MG CAPSULE PO SCH (09:39)
[2021-05-18] MEDS ORDERED: IPRATROPIUM 500 MCG/2.5 ML NEB RESP TX PRN (09:57)
[2021-05-18] MEDS: IPRATROPIUM 500 MCG/2.5 ML NEB RESP TX SCH (13:37)
[2021-05-18] MEDS: ATORVASTATIN 20 MG TABLET PO SCH (21:21)
[2021-05-19] MEDS: IPRATROPIUM 500 MCG/2.5 ML NEB RESP TX SCH ×3 (01:28→12:13)
[2021-05-19 06:04] LABS: Calcium 9.2 MG/DL (8.5-10.1); Osmolality,Calculated 268.1 MOS/KG (273-304); Potassium 3.4 MMOL/L (3.5-5.1)
[2021-05-19] MEDS: ASCORBIC ACID 500 MG TABLET PO SCH (09:06)
[2021-05-19] MEDS: MULTIVITAMIN (BEROCCA) TABLET PO SCH (09:06)
[2021-05-19] MEDS: MONTELUKAST 10 MG TABLET PO SCH (09:06)
[2021-05-19] MEDS: MAGNESIUM CHLORIDE 64 MG TABLET PO SCH (09:06)
[2021-05-19] MEDS: DILTIAZEM CD 180 MG CAPSULE PO SCH (09:06)
[2021-05-19] MEDS: predniSONE 10 MG TABLET PO SCH (09:06)
[2021-05-19] MEDS: THIAMINE 100 MG TABLET PO SCH (09:07)
[2021-05-19] MEDS: METOPROLOL SUCCINATE XL 25 MG TABLET PO SCH (09:07)
[2021-05-19] MEDS: LEVOTHYROXINE 75 MCG TABLET PO SCH (09:08)
[2021-05-19 12:43] VITALS: BP 109/50
== END 2021-05-19 13:30 | disposition home or self-care (01) ==
LOC: N.ED 09:44 → N.EDINP 09:44 → SUATTDRO 11:15 → N.TELES 21:35
PROVIDERS: ADMIT Internal Medicine; ATTEND Internal Medicine Geriatric Medicine

== ENCOUNTER 2021-12-08 09:05 | Inpatient (IN) ==
[2021-12-08] MEDS ORDERED: SODIUM CHLORIDE 0.9% 500 ML IV STA ×2 (09:32→11:41)
[2021-12-08 10:06] LABS: Basophils # 0.1 10*3/uL (0.0-0.2); Basophils % 0.4 % (0.0-0.8); Hematocrit 35.1 VOL% (35.7-47.0); Hemoglobin 11.6 GM/DL (12.0-16.0); Immature Granulocytes % 3.8 %; Immature Granulocytes Absolute 0.81 #; Lymphocytes # 0.6 10*3/uL (1.4-4.0); Lymphocytes % 2.7 % (21.3-54.2); Mean Corpuscular Volume 89.1 FL (87-102); Mean Platelet Volume 9.8 FL (9.6-12.0); Monocytes % 7.9 % (1.7-12.7); Neutrophils % 85.2 % (38.7-73.9); Platelet Count 510 T/CUMM (130-400); Red Blood Count 3.94 MC/CUMM (3.8-5.5); Red Cell Distribution Width 13.6 % (9.3-17.3); White Blood Count 21.4 T/CUMM (4-12)
[2021-12-08 10:29] LABS: Albumin 2.1 G/DL (3.4-5.0); Bilirubin,Total 0.5 MG/DL (0.20-1.00); Calcium 9.4 MG/DL (8.5-10.1); Osmolality,Calculated 278.7 MOS/KG (273-304); Potassium 2.7 MMOL/L (3.5-5.1); Total Protein 6.8 G/DL (6.4-8.2)
[2021-12-08] MEDS ORDERED: cefTRIAXone 1,000 MG in SODIUM CHLORIDE 0.9% 100 ML IV STA (10:34)
[2021-12-08] MEDS ORDERED: AZITHROMYCIN INJ 500 MG in SODIUM CHLORIDE 0.9% 250 ML IV STA (10:34)
[2021-12-08] MEDS ORDERED: ACETAMINOPHEN 500 MG TABLET PO STA (10:36)
[2021-12-08 10:47] LABS: Bacteria,Urine Occasional /HPF (Few); Bilirubin,Urine Negative (Negative); Blood, Urine Small mg/dL (Negative); Glucose,Urine (UA) Negative (Negative); Hyaline Casts,Urine 3 /LPF (0-3); Ketones,Urine Negative (Negative); Mucus,Urine Occasional /LPF (Occasional); Nitrite,Urine Negative (Negative); Protein,Urine Negative; RBC,Urine 2 /HPF (0-4); Squamous Epithelial Cell,Urine Occasional /HPF (0-10); Urine Appearance CLEAR (Clear); Urine Color Yellow (Yellow); Urine Specific Gravity 1.011 (1.001-1.035); Urine Urobilinogen < 2.0 EU/DL (<2.0)
[2021-12-08 10:59] LABS: Lymphocytes 4 % (20-55); Platelet Estimate Normal; Segmented Neutrophils 88 % (50-85); Total Cells Counted 100
[2021-12-08 11:01] LABS: Hypochromia Slight
[2021-12-08] MEDS ORDERED: POTASSIUM CHLORIDE RIDER 20 MEQ/200 ML PREMIX IV ONE (11:38)
[2021-12-08] MEDS: POTASSIUM CHLORIDE RIDER 10 MEQ/100 ML PREMIX IV SCH ×2 (12:00→13:07)
[2021-12-08] MEDS ORDERED: ALBUTEROL/IPRATROPIUM 3 ML NEB RESP TX PRN (12:25)
[2021-12-08] MEDS ORDERED: ONDANSETRON 4 MG/2 ML VIAL IV PRN (12:27)
[2021-12-08] MEDS ORDERED: GLUCAGON 1 MG VIAL IM PRN (12:27)
[2021-12-08] MEDS ORDERED: SIMETHICONE CHEW 125 MG TABLET PO PRN (12:27)
[2021-12-08] MEDS ORDERED: DEXTROSE 10% 25 GM/250 ML BAG IV PRN (12:41)
[2021-12-08] MEDS ORDERED: MAGNESIUM SULF RIDER 4 GM/100 ML PREMIX IV PRN (12:48)
[2021-12-08] MEDS ORDERED: MAGNESIUM SULF RIDER 2 GM/50 ML PREMIX IV PRN (12:48)
[2021-12-08] MEDS: LACTATED RINGERS 1,000 ML IV SCH ×2 (12:59→20:03)
[2021-12-08] MEDS: CEFEPIME 1,000 MG in SODIUM CHLORIDE 0.9% 100 ML IV SCH ×2 (13:05→20:59)
[2021-12-08] MEDS: ENOXAPARIN 30 MG/0.3 ML SYRINGE SUBCUT SCH (13:07)
[2021-12-08] MEDS: PANTOPRAZOLE 40 MG TABLET PO SCH (13:08)
[2021-12-08] MEDS: ALBUTEROL/IPRATROPIUM 3 ML NEB RESP TX SCH ×2 (14:34→19:03)
[2021-12-08] MEDS: DOCUSATE SODIUM 100 MG CAPSULE PO SCH (20:59)
[2021-12-08] MEDS ORDERED: LEVALBUTEROL 1.25 MG/3 ML NEB RESP TX PRN (22:25)
[2021-12-09] MEDS: ALBUTEROL/IPRATROPIUM 3 ML NEB RESP TX SCH ×4 (00:29→20:30)
[2021-12-09] MEDS: LACTATED RINGERS 1,000 ML IV SCH ×3 (03:46→20:33)
[2021-12-09 05:12] LABS: Basophils % 0.1 % (0.0-0.8); Eosinophils # 0.1 10*3/uL (0.0-0.87); Eosinophils % 0.4 % (0.00-10.9); Hematocrit 31.5 VOL% (35.7-47.0); Hemoglobin 10.3 GM/DL (12.0-16.0); Immature Granulocytes % 6.8 %; Immature Granulocytes Absolute 1.52 #; Lymphocytes # 0.6 10*3/uL (1.4-4.0); Lymphocytes % 2.7 % (21.3-54.2); Mean Corpuscular HGB Conc 32.7 GM/DL (32-36); Mean Platelet Volume 9.2 FL (9.6-12.0); Monocytes % 6.6 % (1.7-12.7); Neutrophils % 83.4 % (38.7-73.9); Platelet Count 468 T/CUMM (130-400); Red Cell Distribution Width 13.8 % (9.3-17.3); White Blood Count 22.3 T/CUMM (4-12)
[2021-12-09] MEDS: CEFEPIME 1,000 MG in SODIUM CHLORIDE 0.9% 100 ML IV SCH ×3 (05:14→20:34)
[2021-12-09 05:40] LABS: Calcium 9.1 MG/DL (8.5-10.1); Osmolality,Calculated 276.4 MOS/KG (273-304)
[2021-12-09 05:46] LABS: Potassium 2.3 MMOL/L (3.5-5.1)
[2021-12-09] MEDS: POTASSIUM CHLORIDE 20 MEQ TABLET PO PRN (06:04)
[2021-12-09 06:24] LABS: Band Neutrophils 1 % (0-10); Hypochromia Slight; Lymphocytes 4 % (20-55); Microcytosis 1+; Myelocytes 1 %; Segmented Neutrophils 88 % (50-85); Total Cells Counted 100
[2021-12-09] MEDS: POTASSIUM CHLORIDE INJ 40 MEQ in LACTATED RINGERS 1,000 ML IV SCH ×3 (09:22→23:50)
[2021-12-09] MEDS: DOCUSATE SODIUM 100 MG CAPSULE PO SCH ×2 (10:49→20:32)
[2021-12-09] MEDS ORDERED: METOPROLOL TARTRATE 5 MG/5 ML VIAL IV PRN (11:24)
[2021-12-09] MEDS: PANTOPRAZOLE 40 MG TABLET PO SCH (12:48)
[2021-12-09] MEDS: AZITHROMYCIN INJ 500 MG in SODIUM CHLORIDE 0.9% 250 ML IV SCH (12:48)
[2021-12-09] MEDS: METOPROLOL SUCCINATE XL 25 MG TABLET PO SCH (12:48)
[2021-12-09] MEDS: ENOXAPARIN 30 MG/0.3 ML SYRINGE SUBCUT SCH (15:09)
[2021-12-09] MEDS: ACETAMINOPHEN 325 MG TABLET PO PRN (15:24)
[2021-12-09] MEDS: ATORVASTATIN 20 MG TABLET PO SCH (20:32)
[2021-12-10] MEDS: ALBUTEROL/IPRATROPIUM 3 ML NEB RESP TX SCH ×4 (01:22→19:10)
[2021-12-10] MEDS: LACTATED RINGERS 1,000 ML IV SCH ×2 (05:27→12:03)
[2021-12-10] MEDS: CEFEPIME 1,000 MG in SODIUM CHLORIDE 0.9% 100 ML IV SCH ×2 (05:33→14:38)
[2021-12-10 05:49] LABS: Basophils % 0.1 % (0.0-0.8); Eosinophils # 0.2 10*3/uL (0.0-0.87); Eosinophils % 0.6 % (0.00-10.9); Hematocrit 32.8 VOL% (35.7-47.0); Hemoglobin 10.4 GM/DL (12.0-16.0); Immature Granulocytes Absolute 3.48 #; Lymphocytes # 0.6 10*3/uL (1.4-4.0); Lymphocytes % 2.3 % (21.3-54.2); Mean Corpuscular HGB Conc 31.7 GM/DL (32-36); Mean Corpuscular Volume 93.4 FL (87-102); Mean Platelet Volume 9.6 FL (9.6-12.0); Monocytes % 6.6 % (1.7-12.7); NRBC # 0.02 10*3/uL; Neutrophils % 77.4 % (38.7-73.9); Platelet Count 455 T/CUMM (130-400); Red Blood Count 3.51 MC/CUMM (3.8-5.5); Red Cell Distribution Width 14.1 % (9.3-17.3); White Blood Count 26.7 T/CUMM (4-12)
[2021-12-10] MEDS: POTASSIUM CHLORIDE INJ 40 MEQ in LACTATED RINGERS 1,000 ML IV SCH ×2 (06:01→23:45)
[2021-12-10 06:16] LABS: Calcium 9.1 MG/DL (8.5-10.1); Osmolality,Calculated 283.7 MOS/KG (273-304)
[2021-12-10 06:22] LABS: Band Neutrophils 9 % (0-10); Platelet Estimate Increased; Segmented Neutrophils 86 % (50-85); Total Cells Counted 100
[2021-12-10] MEDS: ACETAMINOPHEN 325 MG TABLET PO PRN (07:07)
[2021-12-10] MEDS: PANTOPRAZOLE 40 MG TABLET PO SCH (09:21)
[2021-12-10] MEDS: METOPROLOL SUCCINATE XL 25 MG TABLET PO SCH (09:21)
[2021-12-10] MEDS: DOCUSATE SODIUM 100 MG CAPSULE PO SCH ×2 (09:22→21:00)
[2021-12-10] MEDS: ENOXAPARIN 30 MG/0.3 ML SYRINGE SUBCUT SCH (14:06)
[2021-12-10] MEDS: AZITHROMYCIN INJ 500 MG in SODIUM CHLORIDE 0.9% 250 ML IV SCH (14:07)
[2021-12-10] MEDS: CLINDAMYCIN INJ 600 MG/50 ML PREMIX IV SCH (15:35)
[2021-12-10] MEDS: POTASSIUM CHLORIDE 20 MEQ TABLET PO PRN ×2 (15:35→18:47)
[2021-12-10] MEDS: ATORVASTATIN 20 MG TABLET PO SCH (21:00)
[2021-12-10] MEDS: SODIUM CHLORIDE 0.9% 1,000 ML IV SCH (22:43)
[2021-12-11] MEDS: ALBUTEROL/IPRATROPIUM 3 ML NEB RESP TX SCH (00:30)
[2021-12-11] MEDS: CLINDAMYCIN INJ 600 MG/50 ML PREMIX IV SCH ×4 (01:31→20:49)
[2021-12-11] MEDS: CEFEPIME 1,000 MG in SODIUM CHLORIDE 0.9% 100 ML IV SCH ×4 (02:12→20:48)
[2021-12-11] MEDS ORDERED: METOPROLOL TARTRATE 5 MG/5 ML VIAL IV ONE ×2 (03:48→08:35)
[2021-12-11] MEDS ORDERED: PHENOL 1.4% THROAT SPRAY 177 ML BOTTLE PO PRN (04:11)
[2021-12-11] MEDS: methylPREDNISolone SOD SUC 40 MG/1 ML VIAL IV SCH ×2 (04:56→13:13)
[2021-12-11 05:16] LABS: Basophils % 0.1 % (0.0-0.8); Eosinophils # 0.2 10*3/uL (0.0-0.87); Eosinophils % 0.5 % (0.00-10.9); Hematocrit 35.2 VOL% (35.7-47.0); Hemoglobin 10.9 GM/DL (12.0-16.0); Immature Granulocytes % 15.3 %; Immature Granulocytes Absolute 5.03 #; Lymphocytes # 0.7 10*3/uL (1.4-4.0); Lymphocytes % 2.2 % (21.3-54.2); Mean Corpuscular Volume 94.1 FL (87-102); Mean Platelet Volume 9.1 FL (9.6-12.0); Monocytes % 6.4 % (1.7-12.7); NRBC # 0.02 10*3/uL; Neutrophils % 75.5 % (38.7-73.9); Platelet Count 522 T/CUMM (130-400); Red Blood Count 3.74 MC/CUMM (3.8-5.5); Red Cell Distribution Width 14.5 % (9.3-17.3)
[2021-12-11 05:32] LABS: Calcium 9.6 MG/DL (8.5-10.1); Osmolality,Calculated 280.8 MOS/KG (273-304); Potassium 4.1 MMOL/L (3.5-5.1)
[2021-12-11 05:38] LABS: Band Neutrophils 2 % (0-10); Lymphocytes 4 % (20-55); Metamyelocytes 2 %; Myelocytes 3 %; Segmented Neutrophils 81 % (50-85); Total Cells Counted 100
[2021-12-11 05:39] LABS: Hypochromia 1+; Microcytosis 1+
[2021-12-11] MEDS: LEVALBUTEROL 1.25 MG/3 ML NEB RESP TX SCH ×2 (07:12→10:05)
[2021-12-11] MEDS ORDERED: DILTIAZEM INJ 100 MG in SODIUM CHLORIDE 0.9% 100 ML IV SCH (09:00)
[2021-12-11] MEDS ORDERED: METOPROLOL SUCCINATE XL 25 MG TABLET PO SCH (09:00)
[2021-12-11] MEDS: LEVOFLOXACIN INJ 500 MG/100 ML PREMIX IV SCH (09:21)
[2021-12-11] MEDS: METOPROLOL SUCCINATE XL 25 MG TABLET PO SCH ×2 (09:25→22:00)
[2021-12-11] MEDS: PANTOPRAZOLE 40 MG TABLET PO SCH (09:28)
[2021-12-11] MEDS: POTASSIUM CHLORIDE 20 MEQ TABLET PO PRN (09:28)
[2021-12-11] MEDS: DOCUSATE SODIUM 100 MG CAPSULE PO SCH ×2 (09:29→21:59)
[2021-12-11] MEDS: FLUTICASONE/SALMETEROL 250-50 DISKUS 14 DOSE INH SCH ×2 (09:40→21:59)
[2021-12-11] MEDS: POTASSIUM CHLORIDE 20 MEQ TABLET PO SCH (09:41)
[2021-12-11] MEDS ORDERED: SODIUM CHLORIDE 0.9% 250 ML IV ONE (10:44)
[2021-12-11] MEDS ORDERED: FUROSEMIDE 20 MG/2 ML VIAL IV ONE (10:45)
[2021-12-11] MEDS ORDERED: DIGOXIN 0.5 MG/2 ML AMP IV ONE ×2 (11:02→11:03)
[2021-12-11] MEDS ORDERED: FUROSEMIDE 40 MG/4 ML VIAL IV ONE (11:17)
[2021-12-11] MEDS: ENOXAPARIN 30 MG/0.3 ML SYRINGE SUBCUT SCH (13:03)
[2021-12-11] MEDS: HYDROCORTISONE 100 MG VIAL IV SCH (16:19)
[2021-12-11] MEDS: ATORVASTATIN 20 MG TABLET PO SCH (22:00)
[2021-12-11] MEDS: SODIUM CHLORIDE 0.9% 1,000 ML IV SCH (22:01)
[2021-12-12] MEDS: HYDROCORTISONE 100 MG VIAL IV SCH (02:14)
[2021-12-12] MEDS: CEFEPIME 1,000 MG in SODIUM CHLORIDE 0.9% 100 ML IV SCH ×2 (05:25→12:45)
[2021-12-12] MEDS: CLINDAMYCIN INJ 600 MG/50 ML PREMIX IV SCH (06:03)
[2021-12-12] MEDS: LEVOFLOXACIN INJ 500 MG/100 ML PREMIX IV SCH (08:32)
[2021-12-12] MEDS ORDERED: FUROSEMIDE 40 MG/4 ML VIAL IV SCH (09:00)
[2021-12-12] MEDS: FLUTICASONE/SALMETEROL 250-50 DISKUS 14 DOSE INH SCH (10:01)
[2021-12-12] MEDS: DOCUSATE SODIUM 100 MG CAPSULE PO SCH (10:01)
[2021-12-12] MEDS: POTASSIUM CHLORIDE 20 MEQ TABLET PO SCH (10:01)
[2021-12-12] MEDS: METOPROLOL SUCCINATE XL 25 MG TABLET PO SCH (10:02)
[2021-12-12] MEDS: PANTOPRAZOLE 40 MG TABLET PO SCH (10:02)
[2021-12-12] MEDS ORDERED: DIGOXIN 0.25 MG TABLET PO SCH (13:00)
[2021-12-12] MEDS ORDERED: LORazepam 2 MG/1 ML VIAL IV PRN (13:15)
[2021-12-12] MEDS: ENOXAPARIN 30 MG/0.3 ML SYRINGE SUBCUT SCH (13:19)
[2021-12-12] MEDS: MORPHINE 2 MG/1 ML SYRINGE IV PRN ×4 (14:04→20:42)
[2021-12-12 21:28] VITALS: BP 34/27
== END 2021-12-12 21:25 | disposition expired | DRG 177 ==
LOC: EDUNIT# → N.ED 09:05 → SUATTDRO 12:28 → N.EDINP 12:28 → N.TELEN 15:21
PROVIDERS: ADMIT Internal Medicine; ATTEND Internal Medicine